=== PATIENT | male | born 1970 | race Caucasian/White ===

== ENCOUNTER → 2019-02-21 | Outpatient (REF) ==
[~2019-02-21] MED LIST: ACHD5005 PO; CYCL10TA9 PO; HYDR-1231 PO; LEVO137T24 PO; NAPR-243 PO; PRD20T PO
--- NOTE | 2019-02-21 09:34 | Diagnostic Imaging Report ---
INDICATION: One day post fall at work, pain. TECHNIQUE: 3 views of the left knee CORRELATION STUDY: None FINDINGS: The joint spaces are maintained. The articular surfaces are smooth and preserved. There is no acute bony abnormality. Small suprapatellar joint effusion. IMPRESSION: 1. Negative for acute bony abnormality of the knee. Dictated by: Dictated on workstation # [id number]
== END | disposition home or self-care (01) ==
LOC: OCC 09:09 → MERGE 09:09
PROVIDERS: ATTEND Nurse Practitioner Family
CPT/HCPCS: 73562

== ENCOUNTER 2021-04-23 13:33 | Emergency (ER) | payer BC ==
[~2021-04-23] VITALS: Ht 182.8 cm; Wt 72.5 kg
--- OUTSIDE RECORDS SUMMARY | 2021-04-23 13:39 | XMS REPORT | Clinical Summary ---
Author Author [facility] Organization [facility] Address Unknown Phone Unavailable Care Team Providers Care Sales Enablement Analyst Name Role Phone Unverified, Unverified Md PCP Unavailable Odette Ordonez MD Unavailable Source Comments Some departments are not documenting in the electronic medical record. If you d o not see the information that you expected, contact Release of Information in [facility] Health Information Management department at [phone] for further assistan ce in locating additional records.[facility] Allergies Not on File Medications Not on file Active Problems Problem Noted Date Pain in limb 11/02/2007 Social History Date Tobacco Use Types Packs/Day Years Used Never Assessed Sex Assigned at Date Recorded Not on file Last Filed Vital Signs Not on file Plan of Treatment Health Maintenance Due Date Last Done Comments HIV SCREENING 1983 DTAP/TDAP VACCINES (1 - 1986 Tdap) HEPATITIS C SCREENING 1986 PHYSICAL (COMPREHENSIVE) 1986 EXAM COLORECTAL CANCER 2018 SCREENING SHINGLES RECOMBINANT 2018 VACCINE (1 of 2) INFLUENZA VACCINE 02/14/2021 Results Not on filefrom Last 3 Months
--- NOTE | 2021-04-23 14:09 | ED Cardiac General ---
History of Present Illness General Chief Complaint: Cardiac/General Problems Stated Complaint: ABNORMAL EKG Source: patient Exam Limitations: no limitations History of Present Illness Date Seen by Provider: Apr 23, 2021 Time Seen by Provider: 14:07 Initial Comments To ER with ongoing shortness of breath since he had Covid last year. He is having some new development of sharp left-sided chest pain that lasts about 2 to 4 seconds at a time and occurs about once per hour for the past few weeks. This seems to be more noticeable when he is short of breath such as walking up sta ir[place]. He is also had some swelling in his lower extremities. Has been off of his thyroid and hypertension medications for over 6 months. Timing/Duration: 1 week Severity: moderate Activities at Onset: none Prior CP/Workup: no prior chest pain NTG SL SLURRY PLANT OPERATOR: No ASA po SLURRY PLANT OPERATOR: No Associated Systoms: Denies Symptoms Allergies and Home Medications Allergies Coded Allergies: meperidine HCl (Verified Allergy, Mild, 10/23/11) morphine (Verified Allergy, Mild, 10/23/11) tramadol (Verified Allergy, Mild, 10/23/11) Patient Home Medication List Home Medication List Reviewed: Yes Hydrochlorothiazide (Hydrochlorothiazide) 25 Mg Tablet, 25 MG PO DAILY Prescribed by: JONA MADERA on 04/23/21 1544 Hydrocodone Bit/Acetaminophen (Hydrocodone-Apap 5-325 Tablet) 1 Tab Tablet, 1-2 TAB PO Q6H PRN for PAIN Prescribed by: JONA MADERA on 10/01/13 1616 Levothyroxine Sodium (Synthroid) 137 Mcg Tablet, 1 EACH PO DAILY, (Reported) Entered as Reported by: MARLON CARRERA on 10/23/11 1047 Potassium Chloride (Potassium Chloride) 20 Meq Packet, 20 MEQ PO DAILY Prescribed by: JONA MADERA on 04/23/21 1606 Prednisone (Prednisone) 20 Mg Tab, 40 MG PO DAILY Prescribed by: JONA MADERA on 10/01/13 1616 Prednisone (Prednisone) 20 Mg Tab, 40 MG PO DAILY Prescribed by: JONA MADERA on 04/23/21 1606 Review of Systems Review of Systems Constitutional: see HPI EENTM: No Symptoms Reported Respiratory: No Symptoms Reported Cardiovascular: No Symptoms Reported Gastrointestinal: No Symptoms Reported Genitourinary: No Symptoms Reported Musculoskeletal: no symptoms reported Skin: no symptoms reported Psychiatric/Neurological: No Symptoms Reported Endocrine: No Symptoms Reported Hematologic/Lymphatic: No Symptoms Reported Past Qpojxmg-Ozlsvj-Svcwhs Hx Past Medical History Chronic Back Pain Hypothyroidsim Physical Exam Vital Signs Vital Signs - First Documented 04/23/21 13:46 Temp 36.9 Pulse 93 Resp 21 B/P (MAP) 169/100 (123) Pulse Ox 94 O2 Delivery Room Air Capillary Refill : Height, Weight, BMI Height: 6'1" Weight: 195lbs. oz. 88.106609ba; BMI Method:Stated General Appearance: No Apparent Distress, WD/WN Neck: Full Range of Motion, Normal Inspection Respiratory: Lungs Clear, Normal Breath Sounds, No Accessory Muscle Use, No Respiratory Distress Cardiovascular: Regular Rate, Rhythm, Normal Peripheral Pulses Gastrointestinal: Non Tender, Soft Extremity: Normal Capillary Refill, Normal Inspection Neurologic/Psychiatric: Alert, Oriented x3 Skin: Normal Color, Warm/Dry Progress/Results/Core Measures Results/Orders Lab Results Laboratory Tests Test 04/23/21 13:55 04/23/21 14:34 Range/Units White Blood Count 8.7 4.3-11.0 10^3/uL Red Blood Count 4.26 L 4.30-5.52 10^6/uL Hemoglobin 15.6 13.3-17.7 g/dL Hematocrit 44 40-54 % Mean Corpuscular Volume 104 H 80-99 fL Mean Corpuscular Hemoglobin 37 H 25-34 pg Mean Corpuscular Hemoglobin Concent 35 32-36 g/dL Red Cell Distribution Width 13.2 10.0-14.5 % Platelet Count 155 130-400 10^3/uL Mean Platelet Volume 10.3 9.0-12.2 fL Immature Granulocyte % (Auto) 1 % Neutrophils (%) (Auto) 63 42-75 % Lymphocytes (%) (Auto) 23 12-44 % Monocytes (%) (Auto) 9 0-12 % Eosinophils (%) (Auto) 3 0-10 % Basophils (%) (Auto) 1 0-10 % Neutrophils # (Auto) 5.5 1.8-7.8 10^3/uL Lymphocytes # (Auto) 2.0 1.0-4.0 10^3/uL Monocytes # (Auto) 0.8 0.0-1.0 10^3/uL Eosinophils # (Auto) 0.3 0.0-0.3 10^3/uL Basophils # (Auto) 0.1 0.0-0.1 10^3/uL Immature Granulocyte # (Auto) 0.0 0.0-0.1 10^3/uL D-Dimer 0.99 H 0.00-0.49 UG/ML Sodium Level 138 135-145 MMOL/L Potassium Level 3.1 L 3.6-5.0 MMOL/L Chloride Level 100 98-107 MMOL/L Carbon Dioxide Level 22 21-32 MMOL/L Anion Gap 16 H 5-14 MMOL/L Blood Urea Nitrogen 9 7-18 MG/DL Creatinine 0.82 0.60-1.30 MG/DL Estimat Glomerular Filtration Rate 99 BUN/Creatinine Ratio 11 Glucose Level 132 H 70-105 MG/DL Calcium Level 9.6 8.5-10.1 MG/DL Corrected Calcium 9.4 8.5-10.1 MG/DL Total Bilirubin 1.9 H 0.1-1.0 MG/DL Aspartate Amino Transf (AST/SGOT) 228 H 5-34 U/L Alanine Aminotransferase (ALT/SGPT) 119 H 0-55 U/L Alkaline Phosphatase 147 H 40-136 U/L Troponin I < 0.028 <0.028 NG/ML C-Reactive Protein High Sensitivity 1.39 H 0.00-0.50 MG/DL B-Type Natriuretic Peptide 41.7 <100.0 PG/ML Total Protein 8.4 H 6.4-8.2 GM/DL Albumin 4.2 3.2-4.5 GM/DL Urine Color YELLOW Urine Clarity CLEAR Urine pH 6.0 5-9 Urine Specific [place] 1.025 H 1.016-1.022 Urine Protein NEGATIVE NEGATIVE Urine Glucose (UA) NEGATIVE NEGATIVE Urine Ketones NEGATIVE NEGATIVE Urine Nitrite NEGATIVE NEGATIVE Urine Bilirubin NEGATIVE NEGATIVE Urine Urobilinogen 1.0 < = 1.0 MG/DL Urine Leukocyte Esterase TRACE H NEGATIVE Urine RBC (Auto) NEGATIVE NEGATIVE Urine RBC NONE /HPF Urine WBC 2-5 /HPF Urine Crystals PRESENT H /LPF Urine Amorphous Sediment RARE ANURADHA URATES H /LPF Urine Bacteria NEGATIVE /HPF Urine Casts NONE /LPF Urine Mucus NEGATIVE /LPF Urine Culture Indicated NO My Orders Orders - JONA MADERA ORDERLIES TEACHER Cbc With Automated Diff (04/23/21 14:01) Hs C Reactive Protein (04/23/21 14:01) Fibrin Degradation Products (04/23/21 14:01) Comprehensive Metabolic Panel (04/23/21 14:01) Ua Culture If Indicated (04/23/21 14:01) Ed Iv/Invasive Line Start (04/23/21 14:01) Chest 1 View, Ap/Pa Only (04/23/21 14:01) Ekg Tracing (04/23/21 14:01) Us Gallbladder [id number] (04/23/21 14:40) BNP (04/23/21 14:52) Troponin I (04/23/21 14:52) Iohexol Injection (Omnipaque 350 Mg/Ml 1 (04/23/21 15:15) Received Contrast (Hold Metformin- Contr (04/23/21 15:15) Ns (Ivpb) (Sodium Chloride 0.9% Ivpb Bag (04/23/21 15:15) Hydrochlorothiazide Cap/Tablet (Hctz Cap (04/23/21 15:45) Ct Angio Chest W (04/23/21 15:44) Medications Given in ED Current Medications Medications Dose Ordered Sig/Sam Route Start Time Stop Time Status Last Admin Dose Admin Iohexol 100 ml ONCE ONCE IV 04/23/21 15:15 04/23/21 15:16 DC 04/23/21 16:12 66 ML Sodium Chloride 100 ml ONCE ONCE IV 04/23/21 15:15 04/23/21 15:16 DC 04/23/21 16:12 80 ML Vital Signs/I&O 04/23/21 13:46 Temp 36.9 Pulse 93 Resp 21 B/P (MAP) 169/100 (123) Pulse Ox 94 O2 Delivery Room Air Departure Impression Primary Impression: Hypertensive heart disease Additional Impressions: Fatty liver disease, nonalcoholic Pleurisy Disposition: 01 HOME, SELF-CARE Condition: Stable Departure-Patient Inst. Decision time for Depature: 15:41 Referrals: NO,LOCAL PHYSICIAN (PCP/Family) Primary Care Physician Patient Instructions: High Blood Pressure (DC) Add. Discharge Instructions: 1. Medication as directed 2. Return to ER for any concerns 3. Follow-up with your doctor next week. All discharge instructions reviewed with patient and/or family. Voiced understanding. Scripts Potassium Chloride (Potassium Chloride) 20 Meq Packet 20 MEQ PO DAILY, #10 PACKET Prov: JONA MADERA APRN 04/23/21 Prednisone (Prednisone) 20 Mg Tab 40 MG PO DAILY, #6 TAB Prov: JONA MADERA APRN 04/23/21 Hydrochlorothiazide (Hydrochlorothiazide) 25 Mg Tablet 25 MG PO DAILY, #20 TAB Prov: JONA MADERA APRN 04/23/21 Work/School Note: Work Release Form Date Seen in the Emergency Department: Apr 23, 2021 Return to Work: Apr 24, 2021 Restrictions: may return to work on 04/24/21 JONA MADERA APRN Apr 23, 2021 14:09
[2021-04-23 14:17] LABS: BASOPHILS # (AUTO) 0.1 10^3/uL (0.0-0.1); BASOPHILS % (AUTO) 1 % (0-10); EOSINOPHILS # (AUTO) 0.3 10^3/uL (0.0-0.3); EOSINOPHILS % (AUTO) 3 % (0-10); HEMATOCRIT 44 % (40-54); HEMOGLOBIN 15.6 g/dL (13.3-17.7); LYMPHOCYTES % (AUTO) 23 % (12-44); MEAN CORPUSCULAR HEMOGLOBIN 37 pg (25-34); MEAN CORPUSCULAR HGB CONC 35 g/dL (32-36); MEAN CORPUSCULAR VOLUME 104 fL (80-99); MEAN PLATELET VOLUME 10.3 fL (9.0-12.2); MONOCYTES # (AUTO) 0.8 10^3/uL (0.0-1.0); MONOCYTES % (AUTO) 9 % (0-12); NEUTROPHILS # (AUTO) 5.5 10^3/uL (1.8-7.8); NEUTROPHILS % (AUTO) 63 % (42-75); PLATELET COUNT 155 10^3/uL (130-400); WHITE BLOOD COUNT 8.7 10^3/uL (4.3-11.0)
[2021-04-23 14:19] LABS: ALBUMIN 4.2 GM/DL (3.2-4.5); POTASSIUM 3.1 MMOL/L (3.6-5.0)
[2021-04-23 14:20] LABS: CALCIUM 9.6 MG/DL (8.5-10.1)
[2021-04-23 14:21] LABS: TOTAL PROTEIN 8.4 GM/DL (6.4-8.2)
[2021-04-23 14:23] LABS: BILIRUBIN,TOTAL 1.9 MG/DL (0.1-1.0)
--- NOTE | 2021-04-23 14:24 | Diagnostic Imaging Report ---
INDICATION: Chest pain. EXAMINATION: Chest from 04/23/2021. FINDINGS: Single view of the chest. The cardiomediastinal silhouette is unremarkable. The pulmonary vasculature is within normal limits. The lungs and pleural spaces are clear. IMPRESSION: No evidence of an acute cardiopulmonary process. Dictated by: Dictated on workstation # [id number]
[2021-04-23 14:25] LABS: CREATININE SERUM 0.82 MG/DL (0.60-1.30)
[2021-04-23 14:44] LABS: BILIRUBIN,URINE NEGATIVE (NEGATIVE); CLARITY,URINE CLEAR; COLOR,URINE YELLOW; GLUCOSE, URINE (UA) NEGATIVE (NEGATIVE); KETONES,URINE NEGATIVE (NEGATIVE); LEUKOCYTE ESTERASE ,URINE TRACE (NEGATIVE); NITRITE,URINE NEGATIVE (NEGATIVE); PROTEIN,URINE NEGATIVE (NEGATIVE)
[2021-04-23 14:52] LABS: AMORPHOUS SEDIMENT,UR RARE AMOR URATES /LPF; BACTERIA,URINE NEGATIVE /HPF
[2021-04-23] MEDS ORDERED: NS 100 ML (IVPB) BAG IV ONE (15:15)
[2021-04-23] MEDS ORDERED: IOHEXOL 350 MG/ML 100 ML (OMNIPAQUE 350) VIAL IV ONE (15:15)
[2021-04-23] MEDS ORDERED: HOLD METFORMIN - RECEIVED CONTRAST 20 ML VIAL IV SCH (15:15)
[2021-04-23] MEDS ORDERED: HYDR25TA4 PO (15:44)
--- NOTE | 2021-04-23 15:59 | Diagnostic Imaging Report ---
PROCEDURE: US Gallbladder. TECHNIQUE: Multiple real-time grayscale images were obtained over the right upper quadrant in various projections. INDICATION: Elevated liver function tests. COMPARISON: None. FINDINGS: The pancreas is mostly obscured by bowel gas. Visible portion is unremarkable. Imaged portions of the aorta and IVC are unremarkable. The liver is echogenic with no focal lesion seen. The liver is large in size measuring 26.6 cm. No biliary dilatation is seen. The main portal vein is hepatopetal. Sonographic De Los Santos's sign is negative. The common bile duct measures 0.5 cm, which is normal. The gallbladder demonstrates no wall thickening and no stones. There is no pericholecystic fluid. The kidney is 11.9 cm in length with no hydronephrosis seen. There is no free fluid. IMPRESSION: 1. Hepatomegaly and hepatic steatosis. 2. No gallbladder abnormality or biliary dilatation seen. Findings reported to MIGUEL Stein, by the standpipe tender following the exam. Dictated by: Dictated on workstation # [id number]
[2021-04-23] MEDS ORDERED: POTA20PA28 PO (16:06)
[2021-04-23] MEDS ORDERED: PRD20T PO (16:06)
--- NOTE | 2021-04-23 16:30 | Diagnostic Imaging Report ---
PROCEDURE: CT angiography of the chest with contrast. TECHNIQUE: Multiple contiguous axial images were obtained through the chest after uneventful bolus administration of intravenous contrast. 3D reconstructed CTA MIP acquisitions were also performed. Auto Exposure Controls were utilized during the CT exam to meet ALARA standards for radiation dose reduction. INDICATION: Shortness of air. Elevated D-dimer. COMPARISON: Chest radiograph 04/23/2021. FINDINGS: No pulmonary artery filling defects. Normal caliber thoracic aorta. Normal heart size. No pericardial effusion. No lymphadenopathy. No pleural effusion or pneumothorax. Lungs are clear. No endobronchial lesions. Chronic overriding fracture of the sternal manubrium. There is also anterior wedging of the T4 vertebral body which is likely chronic and results in approximately 40% height loss anteriorly. Superior endplate height loss of T8, T11, T12 and L1 is also likely chronic. No acute findings in the visualized upper abdomen. IMPRESSION: 1. No pulmonary emboli. 2. No acute CT findings in the chest. 3. Chronic overriding fracture of the sternal manubrium. 4. Multiple compression deformities in the thoracic spine are likely chronic. If there is concern for an acute spinal injury, recommend MRI for further evaluation Dictated by: Dictated on workstation # [id number]
[2021-04-23] MEDS ORDERED: cloNIDine 0.1 MG (CATAPRES) TAB PO ONE (16:45)
[2021-04-23 16:50] VITALS: BP 175/112
== END 2021-04-23 16:50 | disposition home or self-care (01) ==
LOC: EDUNIT# 13:33 → ER 13:36
DX: I11.9 Hypertensive heart disease without heart failure (principal); K76.0 Fatty (change of) liver, not elsewhere classified; E03.9 Hypothyroidism, unspecified; Z88.5 Allergy status to narcotic agent; Z79.890 Hormone replacement therapy; Z79.899 Other long term (current) drug therapy
CPT/HCPCS: 36415; 71045; 71275; 76705; 80053; 81000; 83880; 84484; 85025; 85379; 86141; 93005

== ENCOUNTER 2021-12-11 21:54 | Inpatient (IN) | payer BC ==
[~2021-12-11] VITALS: Ht 182.9 cm; Wt 114.1 kg
[~2021-12-11 21:54] MED LIST changes: +HYDR25TA4 PO; +POTA20PA28 PO
[2021-12-12] MEDS ORDERED: cefTRIAXone 1 GM PRE-MIX 50 ML IV ONE (00:15)
[2021-12-12] MEDS ORDERED: LACTATED RINGERS 1,000 ML IV ONE ×2 (00:15)
--- NOTE | 2021-12-12 00:19 | ED GU-Male ---
General Stated Complaint: KIDNEY STONE Source: patient Exam Limitations: no limitations History of Present Illness Date Seen by Provider: December 12, 2021 Time Seen by Provider: 00:00 Initial Comments Patient presents ER by private conveyance from home with chief complaint of severe burning and pain at the end of his penis for the past 4 days and 2 days of fever 100-101 Fahrenheit. He has been using Tylenol for the fever but nothing helps with the pain. He has had kidney stones before and thinks that is what is happening today. He did not have any flank pain at any time. He is having some nausea with one episode of emesis. No diarrhea constipation or shortness of air. He denies a history of prostatism and does not follow-up with a urologist. Allergies and Home Medications Allergies Coded Allergies: meperidine HCl (Verified Allergy, Mild, 10/23/11) morphine (Verified Allergy, Mild, 10/23/11) tramadol (Verified Allergy, Mild, 10/23/11) Patient Home Medication List Home Medication List Reviewed: Yes Ciprofloxacin HCl (Ciprofloxacin HCl) 500 Mg Tablet, 500 MG PO BID Prescribed by: KRISTINA GODINEZ on 12/12/21 1004 Hydrochlorothiazide (Hydrochlorothiazide) 25 Mg Tablet, 25 MG PO DAILY Prescribed by: JONA MADERA on 04/23/21 1544 Hydrocodone Bit/Acetaminophen (Hydrocodone-Apap 5-325 Tablet) 1 Tab Tablet, 1-2 TAB PO Q6H PRN for PAIN Prescribed by: JONA MADERA on 10/01/13 1616 Hydrocodone/Acetaminophen (Hydrocodone-Acetamin 7.5-325) 7.5 Mg-325 Mg Tablet, 1 EACH PO Q4H PRN for PAIN-BREAKTHROUGH Prescribed by: KRISTINA GODINEZ on 12/12/21 1004 Levothyroxine Sodium (Synthroid) 137 Mcg Tablet, 1 EACH PO DAILY, (Reported) Entered as Reported by: MARLON CARRERA on 10/23/11 1047 Metronidazole (Metronidazole) 500 Mg Tablet, 500 MG PO BID Prescribed by: KRISTINA GODINEZ on 12/12/21 1004 Potassium Chloride (Potassium Chloride) 20 Meq Packet, 20 MEQ PO DAILY Prescribed by: JONA MADERA on 04/23/21 1606 Prednisone (Prednisone) 20 Mg Tab, 40 MG PO DAILY Prescribed by: JONA MADERA on 10/01/13 1616 Prednisone (Prednisone) 20 Mg Tab, 40 MG PO DAILY Prescribed by: JONA MADERA on 04/23/21 1606 Review of Systems Review of Systems Constitutional: No chills, No diaphoresis EENTM: No ear discharge, No hearing loss, No ear pain Respiratory: No cough, No short of breath Cardiovascular: No edema Gastrointestinal: No abdominal pain, No constipation, No diarrhea; nausea, vomiting Genitourinary: burning; denies discharge; dysuria; denies flank pain, denies hematuria Musculoskeletal: No back pain, No joint pain All Other Systemes Reviewed Negative Unless Noted: Yes Past Qrjdmai-Bzryje-Zgqskq Hx Patient Social History Tobacco Use?: No Use of E-Cig and/or Vaping dev: No Substance use?: No Past Medical History Chronic Back Pain Hypothyroidsim Physical Exam Vital Signs Vital Signs - First Documented 12/12/21 00:00 Temp 38.4 Pulse 105 Resp 18 B/P (MAP) 160/92 (114) Pulse Ox 95 O2 Delivery Room Air Capillary Refill : Height, Weight, BMI Height: 6'1" Weight: 195lbs. oz. 88.202493gp; 21.00 BMI Method:Stated General Appearance: WD/WN, mild distress HEENT: PERRL/EOMI, pharynx normal Neck: full range of motion, supple, normal inspection Cardiovascular: normal peripheral pulses, regular rate, rhythm Respiratory: lungs clear, normal breath sounds, no respiratory distress, no accessory muscle use Gastrointestinal: non tender, soft Back: normal inspection, no CVA tenderness Extremities: normal range of motion, non-tender, normal capillary refill Neurologic/Psychiatric: alert, normal mood/affect, oriented x 3 Skin: normal color, warm/dry Focused Exam Lactate Level 12/12/21 00:15: Lactic Acid Level 1.49 Lactic Acid Level Laboratory Tests Test 12/12/21 00:15 Lactic Acid Level 1.49 MMOL/L (0.50-2.00) Progress/Results/Core Measures Suspected Sepsis SIRS Temperature: Pulse: Respiratory Rate: Laboratory Tests 12/12/21 00:10: White Blood Count 9.3 Blood Pressure / Mean: 12/12/21 00:15: Lactic Acid Level 1.49 Laboratory Tests 12/12/21 00:10: Creatinine 0.79, INR Comment 1.2, Platelet Count 133, Total Bilirubin 5.2H Results/Orders Lab Results Laboratory Tests Test 12/12/21 00:10 12/12/21 00:15 12/12/21 00:45 Range/Units White Blood Count 9.3 4.3-11.0 10^3/uL Red Blood Count 4.01 L 4.30-5.52 10^6/uL Hemoglobin 14.1 13.3-17.7 g/dL Hematocrit 40 40-54 % Mean Corpuscular Volume 100 H 80-99 fL Mean Corpuscular Hemoglobin 35 H 25-34 pg Mean Corpuscular Hemoglobin Concent 35 32-36 g/dL Red Cell Distribution Width 15.4 H 10.0-14.5 % Platelet Count 133 130-400 10^3/uL Mean Platelet Volume 9.9 9.0-12.2 fL Immature Granulocyte % (Auto) 0 % Neutrophils (%) (Auto) 63 42-75 % Lymphocytes (%) (Auto) 23 12-44 % Monocytes (%) (Auto) 12 0-12 % Eosinophils (%) (Auto) 1 0-10 % Basophils (%) (Auto) 1 0-10 % Neutrophils # (Auto) 5.9 1.8-7.8 10^3/uL Lymphocytes # (Auto) 2.1 1.0-4.0 10^3/uL Monocytes # (Auto) 1.1 H 0.0-1.0 10^3/uL Eosinophils # (Auto) 0.1 0.0-0.3 10^3/uL Basophils # (Auto) 0.1 0.0-0.1 10^3/uL Immature Granulocyte # (Auto) 0.0 0.0-0.1 10^3/uL Prothrombin Time 15.7 H 12.2-14.7 SEC INR Comment 1.2 0.8-1.4 Activated Partial Thromboplast Time 49 H 24-35 SEC Sodium Level 136 135-145 MMOL/L Potassium Level 2.7 L 3.6-5.0 MMOL/L Chloride Level 91 L 98-107 MMOL/L Carbon Dioxide Level 27 21-32 MMOL/L Anion Gap 18 H 5-14 MMOL/L Blood Urea Nitrogen 11 7-18 MG/DL Creatinine 0.79 0.60-1.30 MG/DL Estimat Glomerular Filtration Rate 106 BUN/Creatinine Ratio 14 Glucose Level 143 H 70-105 MG/DL Calcium Level 9.5 8.5-10.1 MG/DL Corrected Calcium 9.7 8.5-10.1 MG/DL Total Bilirubin 5.2 H 0.1-1.0 MG/DL Aspartate Amino Transf (AST/SGOT) 259 H 5-34 U/L Alanine Aminotransferase (ALT/SGPT) 75 H 0-55 U/L Alkaline Phosphatase 191 H 40-136 U/L Total Protein 8.9 H 6.4-8.2 GM/DL Albumin 3.7 3.2-4.5 GM/DL Serum Alcohol < 10 <10 MG/DL Lactic Acid Level 1.49 0.50-2.00 MMOL/L Urine Color ORANGE Urine Clarity CLEAR Urine pH 7.0 5-9 Urine Specific [place] 1.015 L 1.016-1.022 Urine Protein NEGATIVE NEGATIVE Urine Glucose (UA) TRACE H NEGATIVE Urine Ketones NEGATIVE NEGATIVE Urine Nitrite NEGATIVE NEGATIVE Urine Bilirubin 1+ H NEGATIVE Urine Urobilinogen >=8.0 < = 1.0 MG/DL Urine Leukocyte Esterase TRACE H NEGATIVE Urine RBC (Auto) NEGATIVE NEGATIVE Urine RBC 2-5 H /HPF Urine WBC 2-5 /HPF Urine Squamous Epithelial Cells RARE /HPF Urine Crystals NONE /LPF Urine Bacteria TRACE /HPF Urine Casts NONE /LPF Urine Mucus LARGE H /LPF Urine Culture Indicated CULTURE PENDING My Orders Orders - ALEXX BECKETT Cbc With Automated Diff (12/12/21 00:13) Comprehensive Metabolic Panel (12/12/21 00:13) Blood Culture (12/12/21 00:13) Urine Culture (12/12/21:13) Protime With Inr (12/12/21:13) Partial Thromboplastin Time (12/12/21 00:13) Ed Iv/Invasive Line Start (12/12/21 00:13) Ed Iv/Invasive Line Start (12/12/21 00:13) Remove Rings In Anticipation O (12/12/21:13) Lactic Acid Analyzer (12/12/21:13) Lactated Ringers (Lr 1000 Ml Iv Solution (12/12/21 00:15) Ceftriaxone 1 Gm Pre-Mix (Rocephin 1 Gm (12/12/21 00:15) Ed Iv/Invasive Line Start (12/12/21 00:13) Lactated Ringers (Lr 1000 Ml Iv Solution (12/12/21 00:15) Ct Abd/Pelvis Wo(Kidney Stone) (12/12/21 00:13) Ondansetron Injection (Zofran Injectio (12/12/21 00:30) Ketorolac Injection (Toradol Injection) (12/12/21 00:30) Alcohol (12/12/21 00:48) Potassium Cl 10meq/50ml Ivpb (Kcl 10 Meq (12/12/21 01:00) Potassium Chloride (Tablet) (K Dur Table (12/12/21 01:00) Medications Given in ED Vital Signs/I&O 12/12/21 12/12/21 12/12/21 00:00 00:34 02:00 Temp 38.4 38.4 Pulse 105 Resp 18 B/P (MAP) 160/92 (114) Pulse Ox 95 O2 Delivery Room Air Room Air Capillary Refill : Progress Note : Time: 00:21 Progress Note Kidney stone versus UTI. He is tachycardic and febrile so ordering a septic work-up with a couple liters of fluids and Rocephin IV. Toradol for pain Zofran for nausea Diagnostic Imaging Diagonstic Imaging: CT Plain Films/CT/US/NM/MRI: abdomen, pelvis Comments Suspect colitis with particular predominance thickening and inflammation of the rectum. Probable cirrhosis with splenomegaly. [facility], [place] NAME: CHEYANNE MADSEN [facility] REC#: [id number] PT STATUS: DIS IN : 1970 PHYSICIAN: ALEXX BECKETT MD ADMIT DATE: 12/12/21 Signed Date of Exam:12/12/21 CT ABD/PELVIS WO(KIDNEY STONE) PROCEDURE: CT urinary tract, rule out kidney stone. TECHNIQUE: Multiple contiguous axial images were obtained through the abdomen and pelvis without the use of intravenous contrast. Auto Exposure Controls were utilized during the CT exam to meet ALARA standards for radiation dose reduction. INDICATION: Abdominal pain, flank pain COMPARISON: None available. FINDINGS: Mild bibasilar scarring and/or atelectasis. The liver is diffusely enlarged. It measures near 25 cm in craniocaudal dimension. The liver demonstrates a slightly nodular contour. A few small ill-defined hypodensities are seen within the liver, including a 1.2 cm hypodensity within the anterior left hepatic lobe. The spleen is enlarged measuring 15.2 cm. The adrenal glands are unremarkable. The unenhanced pancreas is unremarkable. Sludge and/or stones are noted within the gallbladder without significant inflammatory stranding adjacent to the gallbladder. 6 mm calculus within the inferior pole of the right kidney. The right kidney and right ureter are otherwise unremarkable. The left kidney and left ureter are unremarkable. Mild vascular calcifications without aneurysmal dilatation of the abdominal aorta. Small fat-containing umbilical hernia. The urinary bladder is unremarkable. Scattered regions of mural thickening are identified within the colon, particularly the rectum and distal sigmoid colon. No evidence of acute appendicitis. No bowel obstruction or pneumatosis. Small amount of free fluid and fat stranding is noted within the peritoneum, particularly within the paracolic gutters. No free air. Multiple superior endplate concavities are identified within the thoracolumbar spine, appearing chronic in nature. Advanced degenerative changes at L5/S1. IMPRESSION: Suspected colitis, particularly involving the distal colon and rectum. Hepatosplenomegaly with probable cirrhotic morphology of the liver. Ill-defined hypodensity is suggested within the liver which is not evaluated. Further evaluation with right upper quadrant ultrasound versus CT or MRI of the abdomen with and without contrast using hepatic mass protocol would be recommended non-emergently. Cholelithiasis. Nonobstructing right renal calculus. Small amount of ascites and inflammatory stranding within the abdomen and pelvis, particularly within the paracolic gutters. Findings regarding the small hypodensities within the liver were not included in the preliminary report, otherwise I agree with the preliminary report. These additional findings were communicated to the ER via the additional findings tracking sheet. Dictated by: Dictated on workstation # [id number] Dict: 12/12/21 0648 Trans: 12/12/216 [facility] [id number] Interpreted by: MARTHA RIVERA MD Electronically signed by: MARTHA RIVERA MD 12/12/216 Reviewed: Reviewed Night Nick Study, Reviewed by Me Departure Communication (Admissions) Time/Spoke to Admitting Phy: 02:42 Discussed the imaging findings of jaundice with Dr. ZUNIGA, general surgery. He is okay to admit the patient to himself with some pain and nausea medications, liquid diet and repeat labs daily. If it passes on its own good if it does not however then he would plan an ERCP. Impression Primary Impression: Microscopic hematuria Additional Impressions: Cholelithiasis with choledocholithiasis Acquired hyperbilirubinemia Disposition: ADMITTED INPATIENT Condition: Stable Admissions Decision to Admit Reason: Admit from ER (General) Decision to Admit/Date: December 12, 2021 Time/Decision to Admit Time: 02:40 Departure-Patient Inst. Referrals: NO,LOCAL PHYSICIAN (PCP/Family) Primary Care Physician Scripts Metronidazole (Metronidazole) 500 Mg Tablet 500 MG PO BID, #20 TAB Prov: KRISTINA GODINEZ RESISTANCE BRAZER 12/12/21 Ciprofloxacin HCl (Ciprofloxacin HCl) 500 Mg Tablet 500 MG PO BID, #20 TAB Prov: KRISTINA GODINEZ APRN 12/12/21 Hydrocodone/Acetaminophen (Hydrocodone-Acetamin 7.5-325) 7.5 Mg-325 Mg Tablet 1 EACH PO Q4H PRN for PAIN-BREAKTHROUGH, #35 TAB Prov: KRISTINA GODINEZ APRN 12/12/21 ALEXX BECKETT December 12, 2021 00:18
[2021-12-12 00:20] LABS: BASOPHILS # (AUTO) 0.1 10^3/uL (0.0-0.1); BASOPHILS % (AUTO) 1 % (0-10); EOSINOPHILS # (AUTO) 0.1 10^3/uL (0.0-0.3); EOSINOPHILS % (AUTO) 1 % (0-10); HEMATOCRIT 40 % (40-54); HEMOGLOBIN 14.1 g/dL (13.3-17.7); LYMPHOCYTES # (AUTO) 2.1 10^3/uL (1.0-4.0); LYMPHOCYTES % (AUTO) 23 % (12-44); MEAN CORPUSCULAR HEMOGLOBIN 35 pg (25-34); MEAN CORPUSCULAR HGB CONC 35 g/dL (32-36); MEAN CORPUSCULAR VOLUME 100 fL (80-99); MEAN PLATELET VOLUME 9.9 fL (9.0-12.2); MONOCYTES # (AUTO) 1.1 10^3/uL (0.0-1.0); MONOCYTES % (AUTO) 12 % (0-12); NEUTROPHILS # (AUTO) 5.9 10^3/uL (1.8-7.8); NEUTROPHILS % (AUTO) 63 % (42-75); PLATELET COUNT 133 10^3/uL (130-400); WHITE BLOOD COUNT 9.3 10^3/uL (4.3-11.0)
[2021-12-12 00:26] LABS: ALBUMIN 3.7 GM/DL (3.2-4.5); POTASSIUM 2.7 MMOL/L (3.6-5.0)
[2021-12-12 00:28] LABS: CALCIUM 9.5 MG/DL (8.5-10.1)
[2021-12-12 00:29] LABS: TOTAL PROTEIN 8.9 GM/DL (6.4-8.2)
[2021-12-12] MEDS ORDERED: ONDANSETRON 4 MG/2 ML (SDV) Z0FRAN IVP ONE (00:30)
[2021-12-12] MEDS ORDERED: KETOROLAC 30 MG/ML VIAL IVP ONE (00:30)
[2021-12-12 00:31] LABS: BILIRUBIN,TOTAL 5.2 MG/DL (0.1-1.0)
[2021-12-12 00:32] LABS: CREATININE SERUM 0.79 MG/DL (0.60-1.30)
[2021-12-12 00:41] LABS: INR 1.2 (0.8-1.4); PROTHROMBIN TIME PATIENT 15.7 SEC (12.2-14.7)
[2021-12-12 00:56] LABS: CLARITY,URINE CLEAR; COLOR,URINE ORANGE; GLUCOSE, URINE (UA) TRACE (NEGATIVE); KETONES,URINE NEGATIVE (NEGATIVE); LEUKOCYTE ESTERASE ,URINE TRACE (NEGATIVE); NITRITE,URINE NEGATIVE (NEGATIVE); PROTEIN,URINE NEGATIVE (NEGATIVE)
[2021-12-12] MEDS ORDERED: POTASSIUM CL 10MEQ/50ML IVPB 50 ML IV ONE (01:00)
[2021-12-12] MEDS ORDERED: KCL 20 MEQ TAB (K-DUR) PO ONE (01:00)
[2021-12-12 01:03] LABS: BILIRUBIN,URINE 1+ (NEGATIVE)
[2021-12-12 01:04] LABS: BACTERIA,URINE TRACE /HPF; SQUAMOUS EPITHELIAL CELL,UR RARE /HPF
[2021-12-12] MEDS ORDERED: CATHETER FLUSH 10 ML SYR IVP PRN (03:45)
[2021-12-12] MEDS ORDERED: ONDANSETRON 4 MG/2 ML (SDV) Z0FRAN IV PRN (03:45)
[2021-12-12] MEDS ORDERED: HYDROcodone/APAP 5 MG/325 MG (LORTAB) TAB PO PRN (03:45)
[2021-12-12] MEDS ORDERED: fentaNYL INJ 100 MCG/2 ML AMP IV PRN (03:45)
[2021-12-12 04:07] VITALS: BP 158/79
[2021-12-12] MEDS: fentaNYL INJ 100 MCG/2 ML AMP IV PRN ×2 (04:07→08:19)
[2021-12-12] MEDS ORDERED: CATHETER FLUSH 10 ML SYR IVP SCH (06:00)
[2021-12-12] MEDS ORDERED: LEVOTHYROXINE 112 MCG (LEVOTHROID) TAB PO SCH (06:30)
[2021-12-12] MEDS ORDERED: LEVOTHYROXINE 25 MCG (LEVOTHROID) TAB PO SCH (06:30)
--- NOTE | 2021-12-12 07:07 | Diagnostic Imaging Report ---
PROCEDURE: CT urinary tract, rule out kidney stone. TECHNIQUE: Multiple contiguous axial images were obtained through the abdomen and pelvis without the use of intravenous contrast. Auto Exposure Controls were utilized during the CT exam to meet ALARA standards for radiation dose reduction. INDICATION: Abdominal pain, flank pain COMPARISON: None available. FINDINGS: Mild bibasilar scarring and/or atelectasis. The liver is diffusely enlarged. It measures near 25 cm in craniocaudal dimension. The liver demonstrates a slightly nodular contour. A few small ill-defined hypodensities are seen within the liver, including a 1.2 cm hypodensity within the anterior left hepatic lobe. The spleen is enlarged measuring 15.2 cm. The adrenal glands are unremarkable. The unenhanced pancreas is unremarkable. Sludge and/or stones are noted within the gallbladder without significant inflammatory stranding adjacent to the gallbladder. 6 mm calculus within the inferior pole of the right kidney. The right kidney and right ureter are otherwise unremarkable. The left kidney and left ureter are unremarkable. Mild vascular calcifications without aneurysmal dilatation of the abdominal aorta. Small fat-containing umbilical hernia. The urinary bladder is unremarkable. Scattered regions of mural thickening are identified within the colon, particularly the rectum and distal sigmoid colon. No evidence of acute appendicitis. No bowel obstruction or pneumatosis. Small amount of free fluid and fat stranding is noted within the peritoneum, particularly within the paracolic gutters. No free air. Multiple superior endplate concavities are identified within the thoracolumbar spine, appearing chronic in nature. Advanced degenerative changes at L5/S1. IMPRESSION: Suspected colitis, particularly involving the distal colon and rectum. Hepatosplenomegaly with probable cirrhotic morphology of the liver. Ill-defined hypodensity is suggested within the liver which is not evaluated. Further evaluation with right upper quadrant ultrasound versus CT or MRI of the abdomen with and without contrast using hepatic mass protocol would be recommended non-emergently. Cholelithiasis. Nonobstructing right renal calculus. Small amount of ascites and inflammatory stranding within the abdomen and pelvis, particularly within the paracolic gutters. Findings regarding the small hypodensities within the liver were not included in the preliminary report, otherwise I agree with the preliminary report. These additional findings were communicated to the ER via the additional findings tracking sheet. Dictated by: Dictated on workstation # [id number]
[2021-12-12 08:00] VITALS: BP 165/90
[2021-12-12] MEDS ORDERED: METR-145 PO (10:04)
[2021-12-12] MEDS ORDERED: HYDR-3817 PO (10:04)
[2021-12-12] MEDS ORDERED: CIPR500T5 PO (10:04)
--- NOTE | 2021-12-12 10:05 | Discharge Inst-Surgical ---
D/C Lap Instructions-KIDO Reconcile Patient Problems Problems Reviewed?: Yes New, Converted, or Re-Newed RX: RX on Chart Please have CBC and CMP checked on Monday12/14/2021 Activity as tolerated No driving for 24 hours No [address] while on pain medications Clear liquid diet Avoid Alcohol, Caffeine, Spicy [place] and Acid foods. Drink 64 fluid oz or more of fluids per day. Symptoms to Report: Fever over 101 degree F, Nausea/Vomiting If any problems/questions: Contact your physician or go to Emergency Room KRISTINA GODINEZ APRN December 12, 2021 10:05
[2021-12-12 10:07] LABS: ALBUMIN 3.4 GM/DL (3.2-4.5); POTASSIUM 2.7 MMOL/L (3.6-5.0)
[2021-12-12 10:08] LABS: CALCIUM 9.2 MG/DL (8.5-10.1)
[2021-12-12 10:10] LABS: TOTAL PROTEIN 8.4 GM/DL (6.4-8.2)
[2021-12-12 10:11] LABS: BILIRUBIN,TOTAL 5.3 MG/DL (0.1-1.0)
[2021-12-12 10:13] LABS: CREATININE SERUM 0.77 MG/DL (0.60-1.30)
[2021-12-12 11:10] VITALS: BP 131/54
--- NOTE | 2021-12-12 11:24 | HISTORY AND PHYSICAL ---
DATE OF SERVICE: HISTORY OF PRESENT ILLNESS: The patient is a 51-year-old male, who presented to the Emergency Department earlier this morning with several day history of pain in the epigastric region as well as in the right upper abdominal quadrant. He also does report having some intermittent episodes of nausea and one episode of emesis. No hematemesis, no coffee ground emesis. He states that his bowel movements are normal. A CT scan was performed, which did show mild gallbladder wall thickening; however, multiple gallstones. He also was found to have elevated total bilirubin 5.2, likely consistent with choledocholithiasis. Patient also was found to have a symptomatic reducible umbilical hernia and sigmoid colitis detected on CT scan. patient does not report any diarrhea or red blood per rectum. He has not had a colonoscopy up to this point in his life. PAST MEDICAL HISTORY: Hypertension, hypothyroid, degenerative joint disease. PAST SURGICAL HISTORY: None known. ALLERGIES: MEPERIDINE, MORPHINE, TRAMADOL. MEDICATIONS: Hydrochlorothiazide 25 mg daily, hydrocodone p.r.n., levothyroxine 137 mcg daily, potassium 20 mEq daily, prednisone 40 mg daily. SOCIAL HISTORY: Negative smoke, negative alcohol. FAMILY HISTORY: Noncontributory. VITAL SIGNS: Temperature 37.6, blood pressure 165/90, pulse 90, respirations 20, pulse ox 93% on room air. REVIEW OF SYSTEMS: A well-nourished male currently in no acute distress. He is not experiencing any shortness of breath or difficulty breathing. No chest pain, palpitations, diaphoresis. No nausea, vomiting, no diarrhea or constipation. He did have fevers early this morning. No recent inadvertent weight loss. All other review of systems negative. PHYSICAL EXAMINATION: CHEST: Good breath sounds bilaterally. HEART: Regular, no murmurs. EXTREMITIES: No lower extremity edema, negative Homans sign. HEENT: No scleral icterus. NECK: No cervical lymphadenopathy. ABDOMEN: Soft, obese. There is pain in the right upper abdominal quadrant upon palpation. There is also a reducible umbilical hernia. SKIN: Warm, dry. LABORATORY DATA: WBC 9.3, hemoglobin 14.1, hematocrit 40, platelets 133. Urinalysis did show trace leukocyte esterase. ASSESSMENT AND PLAN: A 51-year-old male with likely cholelithiasis and choledocholithiasis. Hopefully, this is transient and we will proceed with IV hydration and bowel rest with a clear liquid diet and hopefully the stone or sludge will pass and there is normalization of his liver function enzymes and once this is established, we then proceed with a laparoscopic cholecystectomy, umbilical hernia repair and a colonoscopy. Patient also states that he has to go home for important family issues. He would like to go home and have his labs monitored as an outpatient. This seems reasonable due to the fact he is completely asymptomatic at this time. We will recommend a clear liquid diet and PO abx and home and follow up in the office this monday. Job ID: [id number] DocumentID: [id number] Dictated Date: 12/12/2021 09:36:04 Returned Goods Receiving Clerk Date: 12/12/2021 11:24:10 Dictated By: SHASTA ZUNIGA MD MTDD
== END 2021-12-12 11:10 | disposition home or self-care (01) | DRG 446 ==
LOC: EDUNIT# 21:54 → ER 21:56 → 4TH 12-12 02:50
PROVIDERS: ADMIT Surgery; ATTEND Surgery
DX: K80.70 Calculus of gallbladder and bile duct without cholecystitis without obstruction (principal); R31.29 Other microscopic hematuria; E80.6 Other disorders of bilirubin metabolism; G89.29 Other chronic pain; M54.9 Dorsalgia, unspecified; E03.9 Hypothyroidism, unspecified; K42.9 Umbilical hernia without obstruction or gangrene; K52.9 Noninfective gastroenteritis and colitis, unspecified; M19.90 Unspecified osteoarthritis, unspecified site
CPT/HCPCS: 36415; 74176; 80053; 80320; 81000; 83605; 85025; 85610; 85730; 87040; 87088

== ENCOUNTER → 2021-12-23 | Outpatient (CLI) | payer BC ==
[~2021-12-23] MED LIST changes: +CIPR500T5 PO; +HYDR-3817 PO; +METR-145 PO
--- NOTE | 2021-12-23 11:46 | Diagnostic Imaging Report ---
EXAMINATION: MRI of the abdomen without contrast. MRCP TECHNIQUE: Multiplanar, multisequence MR images of the abdomen were obtained without intravenous contrast including 3D MIP MRCP images. HISTORY: Choledocholithiasis COMPARISON: None available. FINDINGS: Liver: Liver is cirrhotic. There is a small cyst in segment 4A of the liver. No suspicious liver lesions are seen. There are a few nodular areas of sparing of steatosis at the gallbladder fossa. There is mild steatosis. No surface nodularity. Ducts: No biliary ductal dilation. Gallbladder: There are a few small stones in the gallbladder. No wall thickening or pericholecystic fluid.. Pancreas: Normal. Spleen: Normal. Adrenals: Normal. Kidneys: No suspicious lesions. No hydronephrosis. Bowel: Normal. Other: No lymphadenopathy. Visualized portions of the thorax are normal. No suspicious osseus lesions. IMPRESSION: 1. Cirrhotic liver without suspicious lesion. There is steatosis with a few scattered areas of sparing at the gallbladder fossa. 2. Small gallstones in the gallbladder. No choledocholithiasis. Dictated by: Dictated on workstation # [id number]
== END ==
LOC: RAD 08:45
PROVIDERS: ATTEND Internal Medicine Gastroenterology
DX: K74.60 Unspecified cirrhosis of liver (principal); K76.0 Fatty (change of) liver, not elsewhere classified; K80.50 Calculus of bile duct without cholangitis or cholecystitis without obstruction; R93.89 Abnormal findings on diagnostic imaging of other specified body structures
CPT/HCPCS: 74181

== ENCOUNTER → 2022-01-05 | Outpatient (CLI) | payer BC ==
[~2022-01-05] VITALS: Ht 189 cm; Wt 104.0 kg
[~2022-01-05] MED LIST changes: +PENI500T PO
== END | disposition home or self-care (01) ==
LOC: PREOP 05:41
PROVIDERS: ATTEND Surgery
DX: Z01.818 Encounter for other preprocedural examination (principal)

== ENCOUNTER → 2022-01-20 | Outpatient (CLI) | payer BC ==
[~2022-01-20] MED LIST changes: +ACET-2267 PO; +LEVO125T6 PO; +LISI1TAB46 PO; +LORA-405 PO; +PANT40TA2 PO
== END | disposition home or self-care (01) ==
LOC: PREOP 05:35
PROVIDERS: ATTEND Surgery
DX: Z01.818 Encounter for other preprocedural examination (principal)

== ENCOUNTER 2022-01-25 14:05 | Inpatient (IN) | payer BC ==
[~2022-01-25] VITALS: Ht 182.9 cm; Wt 110.7 kg
[~2022-01-25 14:05] MED LIST changes: -ACET-2267 PO; -LEVO125T6 PO; -LISI1TAB46 PO; -LORA-405 PO; -PANT40TA2 PO
[2022-01-25] MEDS ORDERED: NS IV 1000 ML 1,000 ML IV STA (14:56)
[2022-01-25 15:03] LABS: EOSINOPHILS % (AUTO) 0 % (0-10); HEMATOCRIT 36 % (40-54); HEMOGLOBIN 12.8 g/dL (13.3-17.7); MEAN CORPUSCULAR HGB CONC 35 g/dL (32-36)
[2022-01-25 15:05] LABS: BASOPHILS # (AUTO) 0.1 10^3/uL (0.0-0.1); BASOPHILS % (AUTO) 1 % (0-10); LYMPHOCYTES # (AUTO) 0.8 10^3/uL (1.0-4.0); LYMPHOCYTES % (AUTO) 8 % (12-44); MEAN CORPUSCULAR HEMOGLOBIN 36 pg (25-34); MEAN CORPUSCULAR VOLUME 101 fL (80-99); MEAN PLATELET VOLUME 9.9 fL (9.0-12.2); MONOCYTES # (AUTO) 0.9 10^3/uL (0.0-1.0); MONOCYTES % (AUTO) 8 % (0-12); NEUTROPHILS % (AUTO) 83 % (42-75); WHITE BLOOD COUNT 10.8 10^3/uL (4.3-11.0)
[2022-01-25 15:07] LABS: ALBUMIN 3.5 GM/DL (3.2-4.5)
[2022-01-25 15:08] LABS: CALCIUM 8.3 MG/DL (8.5-10.1)
[2022-01-25 15:09] LABS: PLATELET COUNT 38 10^3/uL (130-400)
[2022-01-25 15:10] LABS: TOTAL PROTEIN 7.9 GM/DL (6.4-8.2)
[2022-01-25 15:11] LABS: BILIRUBIN,TOTAL 10.2 MG/DL (0.1-1.0)
[2022-01-25 15:13] LABS: CREATININE SERUM 0.73 MG/DL (0.60-1.30)
[2022-01-25 15:16] LABS: BAND NEUTROPHILS 6 %; LYMPHOCYTES % (MANUAL) 8 %; MONOCYTES % (MANUAL) 8 %; NEUTROPHILS % (MANUAL) 78 %; PLATELET CLUMPS NONE SEEN; PLATELET ESTIMATE DECREASED; RBC MORPH NORMAL
[2022-01-25 15:18] LABS: POTASSIUM 2.4 MMOL/L (3.6-5.0)
[2022-01-25] MEDS ORDERED: fentaNYL INJ 100 MCG/2 ML AMP IVP STA ×2 (15:32→18:29)
--- NOTE | 2022-01-25 15:38 | ED Abdominal Pain ---
General Chief Complaint: Abdominal/GI Problems Stated Complaint: URINATING BLOOD,N/V Nursing Triage Note: PT AMB TO [facility] 4 WITH MOTHER WITH C/O BLOOD IN STOOL AND URINE X3 DAYS AND LOW ABD PAIN X3 DAYS. PT SAID HE HAS A SCHEDULED ANNMARIE WITH DR PEDRAZA ON MONDAY THIS WEEK Source of Information: Patient Exam Limitations: No Limitations History of Present Illness Date Seen by Provider: Jan 25, 2022 Time Seen by Provider: 15:35 Initial Comments Patient is a 51-year-old male who presents ED with suprapubic lower abdominal pain over the past 3 days. Pain describes sharp with pain in his lower back. Pain has been constant. Noted dark urine and bright red blood in his stool. He denies of any vomiting or diarrhea. States he was constipated but did have 4 bowel movements today. Denies of any rectal pain. He does have a umbilical hernia and known gallstones scheduled for surgery by Dr. Pedraza on . He denies blood thinner use or excessive NSAID use. History of alcohol abuse several years ago. Patient reports subjective fever. Denies chest pain, shortness of breath, headache, dizziness, visual changes, chest pain, shortness of breath, cough, headache, ear pain. Patient denies of any frequent urination, pain with urination Allergies and Home Medications Allergies Coded Allergies: meperidine HCl (Verified Allergy, Mild, 10/23/11) morphine (Verified Allergy, Mild, 10/23/11) tramadol (Verified Allergy, Mild, 10/23/11) Patient Home Medication List Home Medication List Reviewed: Yes Acetaminophen (Tylenol Extra Strength) 500 Mg Tablet, 1,000 MG PO Q8H PRN for PAIN-MILD (1-4), (Reported) Entered as Reported by: MAIN NARAYANAN on 01/26/221452 Last Action: Reviewed Levothyroxine Sodium (Levothyroxine Sodium) 125 Mcg Tablet, 125 MCG PO DAILY, (Reported) Entered as Reported by: MAIN NARAYANAN on 01/26/221452 Last Action: Reviewed Lisinopril/Hydrochlorothiazide (Lisinopril-Hctz 20-12.5 mg Tab) 20 Mg-12.5 Mg Tablet, 1 EA PO DAILY, (Reported) Entered as Reported by: MAIN NARAYANAN on 01/26/221452 Last Action: Reviewed Lorazepam (Ativan) 1 Mg Tablet, 1 MG PO QID Prescribed by: SHASTA PEDRAZA on 01/27/22 1634 Pantoprazole Sodium (Protonix) 40 Mg Tablet.dr, 40 MG PO DAILY Prescribed by: SHASTA PEDRAZA on 01/27/22 1634 Discontinued Medications Levothyroxine Sodium (Synthroid) 137 Mcg Tablet, 1 EACH PO DAILY, (Reported) Discontinued Reason: No Longer Taking Entered as Reported by: MARLON CARRERA on 10/23/11 1047 Last Action: Discontinued Penicillin V Potassium (Penicillin V Potassium) 500 Mg Tablet, 500 MG PO 6XDA EDILIA, (Reported) Discontinued Reason: No Longer Taking Entered as Reported by: XENIA LANGE on 01/06/22 0939 Last Action: Discontinued Review of Systems Review of Systems Constitutional: No chills, No diaphoresis, No malaise EENTM: No Double Vision, No Eye Pain, No Eye Tearing Respiratory: Denies Cough Cardiovascular: Denies No Symptoms Reported, Denies Chest Pain Gastrointestinal: Abdominal Pain; Denies Diarrhea, Denies Nausea; Rectal Bleeding; Denies Vomiting Genitourinary: Denies Burning, Denies Discharge; Hematuria Musculoskeletal: No back pain, No joint pain Skin: No change in color, No change in hair/nails Endocrine: Denies Excessive Sweating, Denies Flushing All Other Systems Reviewed Negative Unless Noted: Yes Past Xkljfwd-Qilggy-Ovykgb Hx Patient Social History Tobacco Use?: No Use of E-Cig and/or Vaping dev: No Substance use?: No Alcohol Use?: Yes Alcohol type: Beer Alcohol Frequency: Once in a while Pt feels they are or have been: No Immunizations Up To Date Influenza Vaccine Up-to-Date: Yes; Up-to-Date First/Initial COVID19 Vaccinat: 2020 Second COVID19 Vaccination Carl: 2020 Third COVID19 Vaccination Date: no Seasonal Allergies Seasonal Allergies: Yes Past Medical History Surgery/Hospitalization HX: APPY, HAND, T/A HTN, HYPOTHRYOIDISM Surgeries: Yes (Left hand, APPENDIX, TONSILLECTOMY) Adenoidectomy, Appendectomy, Orthopedic, Tonsillectomy Respiratory: No Cardiac: Yes High Cholesterol, Hypertension Neurological: No Genitourinary: Yes Prostate Problems Gastrointestinal: Yes (UMBILICAL HERNIA, COLITIS) Gall Bladder Disease Musculoskeletal: Yes (states flare ups of back pain) Chronic Back Pain Endocrine: Yes Hypothyroidsim HEENT: Yes (READERS) Cancer: No Psychosocial: Yes Anxiety, PTSD, Depression Integumentary: No Blood Disorders: No Physical Exam Vital Signs Vital Signs - First Documented 01/25/22 14:25 Temp 37.4 Pulse 107 Resp 16 B/P (MAP) 156/86 (109) Capillary Refill : Height/Weight/BMI Height: 6'1" Weight: 195lbs. oz. [id number]; 29.11 BMI Method:Stated General Appearance: WD/WN, no apparent distress HEENT: PERRL/EOMI, normal ENT inspection, TMs normal, pharynx normal Neck: non-tender, full range of motion, supple, normal inspection Respiratory: chest non-tender, lungs clear, normal breath sounds, no respiratory distress, no accessory muscle use Cardiovascular: regular rate, rhythm, no edema, no gallop, no JVD Gastrointestinal: normal bowel sounds, soft, no organomegaly, no pulsatile mass, tenderness (Suprapubic tenderness on palpation. 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, no motor/sensory deficits, alert, normal mood/affect Skin: normal color, warm/dry Progress/Results/Core Measures Results/Orders Lab Results Laboratory Tests Test 01/25/22 14:35 01/25/22 14:38 01/25/22 15:50 Range/Units Prothrombin Time 18.5 H 12.2-14.7 SEC INR Comment 1.5 H 0.8-1.4 Activated Partial Thromboplast Time 51 H 24-35 SEC Magnesium Level 1.4 L 1.6-2.4 MG/DL Direct Bilirubin 5.5 H 0.0-0.3 MG/DL Hepatitis A IgM Antibody Non-Reactive Non-Reactive Hepatitis B Surface Antigen Non-Reactive Non-Reactive Hepatitis B Core IgM Antibody Non-Reactive Non-Reactive Hepatitis C Antibody Non-Reactive Non-Reactive White Blood Count 10.8 4.3-11.0 10^3/uL Red Blood Count 3.59 L 4.30-5.52 10^6/uL Hemoglobin 12.8 L 13.3-17.7 g/dL Hematocrit 36 L 40-54 % Mean Corpuscular Volume 101 H 80-99 fL Mean Corpuscular Hemoglobin 36 H 25-34 pg Mean Corpuscular Hemoglobin Concent 35 32-36 g/dL Red Cell Distribution Width 15.2 H 10.0-14.5 % Platelet Count 38 *L 130-400 10^3/uL Mean Platelet Volume 9.9 9.0-12.2 fL Immature Granulocyte % (Auto) 0 % Neutrophils (%) (Auto) 83 H 42-75 % Lymphocytes (%) (Auto) 8 L 12-44 % Monocytes (%) (Auto) 8 0-12 % Eosinophils (%) (Auto) 0 0-10 % Basophils (%) (Auto) 1 0-10 % Neutrophils # (Auto) 9.0 H 1.8-7.8 10^3/uL Lymphocytes # (Auto) 0.8 L 1.0-4.0 10^3/uL Monocytes # (Auto) 0.9 0.0-1.0 10^3/uL Eosinophils # (Auto) 0.0 0.0-0.3 10^3/uL Basophils # (Auto) 0.1 0.0-0.1 10^3/uL Immature Granulocyte # (Auto) 0.0 0.0-0.1 10^3/uL Neutrophils % (Manual) 78 % Lymphocytes % (Manual) 8 % Monocytes % (Manual) 8 % Band Neutrophils 6 % Platelet Estimate DECREASED Clumped Platelets NONE SEEN Percent Immature Platelet Fraction 3.8 0.0-7.6 % Blood Morphology Comment NORMAL Sodium Level 132 L 135-145 MMOL/L Potassium Level 2.4 *L 3.6-5.0 MMOL/L Chloride Level 89 L 98-107 MMOL/L Carbon Dioxide Level 23 21-32 MMOL/L Anion Gap 20 H 5-14 MMOL/L Blood Urea Nitrogen 8 7-18 MG/DL Creatinine 0.73 0.60-1.30 MG/DL Estimat Glomerular Filtration Rate 109 BUN/Creatinine Ratio 11 Glucose Level 122 H 70-105 MG/DL Calcium Level 8.3 L 8.5-10.1 MG/DL Corrected Calcium 8.7 8.5-10.1 MG/DL Total Bilirubin 10.2 H 0.1-1.0 MG/DL Aspartate Amino Transf (AST/SGOT) 234 H 5-34 U/L Alanine Aminotransferase (ALT/SGPT) 45 0-55 U/L Alkaline Phosphatase 195 H 40-136 U/L C-Reactive Protein High Sensitivity 2.55 H 0.00-0.50 MG/DL Total Protein 7.9 6.4-8.2 GM/DL Albumin 3.5 3.2-4.5 GM/DL Lipase 242 H 8-78 U/L Serum Alcohol 56 H <10 MG/DL Urine Color YELLOW Urine Clarity CLEAR Urine pH 6.0 5-9 Urine Specific [place] 1.020 1.016-1.022 Urine Protein NEGATIVE NEGATIVE Urine Glucose (UA) TRACE H NEGATIVE Urine Ketones TRACE H NEGATIVE Urine Nitrite POSITIVE H NEGATIVE Urine Bilirubin 2+ H NEGATIVE Urine Urobilinogen 4.0 < = 1.0 MG/DL Urine Leukocyte Esterase NEGATIVE NEGATIVE Urine RBC (Auto) NEGATIVE NEGATIVE Urine RBC 0-2 /HPF Urine WBC 0-2 /HPF Urine Squamous Epithelial Cells 0-2 /HPF Urine Crystals NONE /LPF Urine Bacteria NEGATIVE /HPF Urine Casts PRESENT /LPF Urine Hyaline Casts 0-2 H /LPF Urine Mucus NEGATIVE /LPF Urine Culture Indicated NO My Orders Orders - JOHN GARCIA PA Ua Culture If Indicated (01/25/22 14:33) Cbc With Automated Diff (01/25/22 14:56) Comprehensive Metabolic Panel (01/25/22 14:56) Lipase (01/25/22 14:56) Ns Iv 1000 Ml (Sodium Chloride 0.9%) (01/25/22 14:56) Hs C Reactive Protein (01/25/22 14:56) Manual Differential (01/25/22 14:38) Fentanyl Inj (Sublimaze Injection) (01/25/22 15:32) Ct Abdomen/Pelvis W (01/25/22 15:33) Partial Thromboplastin Time (01/25/22 15:34) Protime With Inr (01/25/22 15:34) Magnesium (01/25/22 15:34) Potassium Cl 10meq/50ml Ivpb (Kcl 10 Meq (01/25/22 15:45) Iohexol Injection (Omnipaque 350 Mg/Ml 1 (01/25/22 15:45) Ns (Ivpb) (Sodium Chloride 0.9% Ivpb Bag (01/25/22 15:45) Ekg Tracing (01/25/22 15:38) Magnesium 1 Gm/100 Ml Ivpb (Magnesium Tabares (01/25/22 16:45) Alcohol (01/25/22 18:27) Fentanyl Inj (Sublimaze Injection) (01/25/22 18:29) Ondansetron Injection (Zofran Injectio (01/25/22 18:30) Ciprofloxacin Iv 400mg/200ml (Cipro Iv S (01/25/22 21:00) Type And Screen (01/25/22 18:30) Platelet Pheresis Lr (01/25/22 18:30) Medications Given in ED Vital Signs/I&O 01/25/22 14:25 Temp 37.4 Pulse 107 Resp 16 B/P (MAP) 156/86 (109) Blood Pressure Mean: 109 Comment Sinus tachycardia, left axis deviation, left ventricular hypertrophy, 102 bpm, QRS duration 109 MS, QTc 397 MS Departure Communication (Admissions) Time/Spoke to Admitting Phy: 18:28 Patient was discussed with Dr. Rehman who accepts patient. Consult with Dr. Pedraza. Communication (PCP) Patient is a 51-year-old male who presents ED with suprapubic pain with nausea dry heaving and bright red bloody stools. History of alcohol abuse. Denies of any alcohol use for 3 years. Patient with dry heaving here. Was given nausea medication patient was recently seen by Dr. Pedraza scheduled for cholecystectomy and umbilical hernia repair this . Not currently on blood thinners. Denies of any NSAID use. Patient refused Hemoccult test which I strongly recom mend to rule out blood in stool. Denies of any dark tarry stool more as bright red blood. Denies of any rectal pain. CT abdomen pelvis with liver cirrhosis, mesenteric edema, cholelithiasis and right kidney stone. Patient was given a round of IV pain medication. Patient was started on a liter of fluid. Potassium of 2.4 magnesium 1.4. Was given supplement IV potassium and mag nesium. Will likely need several rounds of IV potassium. Oral potassium was not given secondary to his dry heaving. Patient platelet count returned at 38. Hemoglobin of 12.2. Slight elevated coags. Denies of any hematemesis. no history of GI bleed. Patient denies history of liver cirrhosis. Patient denied alcohol. Alcohol level was added which was elevated. Patient did admit to drinking alcohol. Hepatitis panel was ordered. Due to the patient's current complaints potential GI bleed with abnormal lab work patient will be admitted for further evaluation. Consulted Dr. Pedraza who recommends starting on Cipro and Flagyl secondary to the colitis. No known history of ulcerative colitis. Clear liquid diet at this time. Recommended a unit of platelets secondary to low platelets and surgery on . IV Protonix was ordered. Patient was discussed with Dr. Recommend recommend admission for further evaluation with surgical consult. Patient will likely need colonoscopy or EGD for further evaluation Impression Primary Impression: Gallstones Additional Impressions: Calculus of kidney Abdominal pain Colitis Cirrhosis of liver UTI (urinary tract infection) Rectal bleeding Acute alcoholic hepatitis Disposition: ADMITTED INPATIENT Condition: Stable Admissions Decision to Admit Reason: Admit from ER (General) Decision to Admit/Date: Jan 25, 2022 Time/Decision to Admit Time: 18:28 Departure-Patient Inst. Referrals: NO,LOCAL PHYSICIAN (PCP/Family) Primary Care Physician Scripts Lorazepam (Ativan) 1 Mg Tablet 1 MG PO QID for 7 Days, #60 TAB Prov: SHASTA PEDRAZA MD 01/27/22 Pantoprazole Sodium (Protonix) 40 Mg Tablet. 40 MG PO DAILY, #90 TAB Prov: SHASTA PEDRAZA MD 01/27/22 JOHN GARCIA Jan 25, 2022 15:38
[2022-01-25 15:44] LABS: INR 1.5 (0.8-1.4); PROTHROMBIN TIME PATIENT 18.5 SEC (12.2-14.7)
[2022-01-25] MEDS ORDERED: IOHEXOL 350 MG/ML 100 ML (OMNIPAQUE 350) VIAL IV ONE (15:45)
[2022-01-25] MEDS ORDERED: NS 100 ML (IVPB) BAG IV ONE (15:45)
[2022-01-25] MEDS ORDERED: POTASSIUM CL 10MEQ/50ML IVPB 50 ML IV ONE (15:45)
[2022-01-25 16:00] LABS: CLARITY,URINE CLEAR; COLOR,URINE YELLOW; GLUCOSE, URINE (UA) TRACE (NEGATIVE); KETONES,URINE TRACE (NEGATIVE); LEUKOCYTE ESTERASE ,URINE NEGATIVE (NEGATIVE); NITRITE,URINE POSITIVE (NEGATIVE); PROTEIN,URINE NEGATIVE (NEGATIVE)
[2022-01-25 16:27] LABS: BACTERIA,URINE NEGATIVE /HPF; BILIRUBIN,URINE 2+ (NEGATIVE); HYALINE CASTS, URINE 0-2 /LPF; RBC,URINE 0-2 /HPF; SQUAMOUS EPITHELIAL CELL,UR 0-2 /HPF; WBC,URINE 0-2 /HPF
[2022-01-25] MEDS ORDERED: MAGNESIUM 1 GM/100 ML IVPB 100 ML IV ONE (16:45)
--- NOTE | 2022-01-25 17:18 | Diagnostic Imaging Report ---
PROCEDURE: CT abdomen and pelvis with contrast. TECHNIQUE: Multiple contiguous axial images were obtained through the abdomen and pelvis after administration of intravenous contrast. Auto Exposure Controls were utilized during the CT exam to meet ALARA standards for radiation dose reduction. All CT scans use one or more of the following dose optimizing techniques: Automated exposure control, MA and/or KvP adjustment based on patient size and exam type or iterative reconstruction. INDICATION: Suprapubic pain. Blood in stool and urine. COMPARISON: MRI abdomen 12/23/2021. CT abdomen and pelvis without contrast 12/12/2021. FINDINGS: Mild atelectasis in the lung bases. Cirrhotic nodular contour of the liver. The portal venous system is normally opacified. Cholelithiasis. The pancreas, spleen, adrenals, left kidney, ureters, and urinary bladder are unremarkable. Nonobstructing calyceal tip renal stone in the lower pole of the right kidney measures up to 0.5 cm. There is increasing bowel wall thickening throughout most of the colon. Increasing diffuse mesenteric edema and increasing fluid layering in the colic gutters. The appendix is not well seen and may be surgically absent. No free intraperitoneal air. No evidence of bowel obstruction. No acute osseous findings. Superior endplate height loss of multiple vertebral bodies in the thoracolumbar junction is stable. IMPRESSION: 1. Cirrhotic nodular contour of the liver. The portal venous system is normally opacified. 2. Increasing mesenteric edema and increasing fluid layering in the colic gutters. 3. Increasing bowel wall thickening/edema involving most of the colon suggesting a nonspecific colitis. 4. Cholelithiasis. 5. Nonobstructing calyceal tip renal stone in the lower pole of the right kidney is stable. Dictated by: Dictated on workstation # [id number]
[2022-01-25] MEDS ORDERED: ONDANSETRON 4 MG/2 ML (SDV) Z0FRAN IVP ONE (18:30)
[2022-01-25 20:30] VITALS: BP 159/87
[2022-01-25] MEDS ORDERED: NS IV 500 ML 500 ML ONE (20:40)
[2022-01-25 20:57] VITALS: BP 159/87
[2022-01-25] MEDS ORDERED: CIPROFLOXACIN IV 400MG/200ML 200 ML IV SCH (21:00)
[2022-01-25] MEDS ORDERED: ACETAMINOPHEN 500 MG TAB (TYLENOL) ONE (21:01)
[2022-01-25] MEDS ORDERED: fentaNYL INJ 100 MCG/2 ML AMP ONE (21:05)
[2022-01-25] MEDS: fentaNYL INJ 100 MCG/2 ML AMP IVP PRN ×2 (21:14→23:33)
[2022-01-25 21:15] VITALS: BP 168/89
[2022-01-25] MEDS ORDERED: ACETAMINOPHEN 500 MG TAB (TYLENOL) PO PRN (21:15)
[2022-01-25] MEDS ORDERED: NS IV 500 ML 500 ML IV SCH (21:30)
--- NOTE | 2022-01-25 22:23 | Progress Note-Pre Operative ---
Pre-Operative Progress Note H&P Reviewed The H&P was reviewed, patient examined and no changes noted. Date Seen by Provider: Jan 25, 2022 Time Seen by Provider: :30 Date H&P Reviewed: Jan 25, 2022 Time H&P Reviewed: :30 Pre-Operative Diagnosis: coffee ground emesis with hx liver cirrhosis SHASTA ZUNIGA MD Jan 25, 2022 22:23
[2022-01-25] MEDS ORDERED: ONDANSETRON 4 MG/2 ML (SDV) Z0FRAN IVP PRN (22:30)
[2022-01-25 22:48] VITALS: BP 168/81
[2022-01-25] MEDS ORDERED: POTASSIUM CL 10MEQ/50ML IVPB 100 ML IV ONE (22:54)
[2022-01-25 23:01] VITALS: BP 168/81
[2022-01-25] MEDS ORDERED: NS IV 1000 ML 1,000 ML ONE (23:05)
[2022-01-25] MEDS ORDERED: PROMETHAZINE INJ 25 MG/ML (PHENERGAN) AMP IVP PRN (23:15)
[2022-01-25] MEDS ORDERED: ceFAZolin 2 GM IV Premixed 50 ML IV ONE (23:15)
[2022-01-25] MEDS: metroNIDAZOLE 500MG/100ML IVPB 100 ML IV SCH (23:24)
[2022-01-25] MEDS: POTASSIUM CL 10 MEQ/50 ML IVPB (PRE-MIX) IV SCH (23:25)
[2022-01-25] MEDS: NS IV 1000 ML 1,000 ML IV SCH (23:28)
[2022-01-26] VITALS (9 sets, daily range): BP systolic 136–164; BP diastolic 78–88
[2022-01-26] MEDS: POTASSIUM CL 10 MEQ/50 ML IVPB (PRE-MIX) IV SCH (00:21)
[2022-01-26] MEDS: HYDROcodone/APAP 7.5 MG/325 MG (LORTAB, LORCET PLUS) TABLET PO PRN ×3 (01:39→23:23)
[2022-01-26] MEDS: fentaNYL INJ 100 MCG/2 ML AMP IVP PRN ×3 (03:23→08:11)
--- NOTE | 2022-01-26 05:49 | CONSULTATION REPORT ---
DATE OF SERVICE: HISTORY OF PRESENT ILLNESS: The patient is a 51-year-old male known to us. He was seen several weeks ago after he presented to the Emergency Department with several day history of pain in the epigastric region as well as right upper abdominal quadrant. This was associated with intermittent nausea and a few episodes of emesis. A CT scan was performed, which did show some gallbladder wall thickening as well as gallstones. He was also found to have hyperbilirubinemia with a bilirubin of 5.2. He did undergo an MRCP, which did not show any choledocholithiasis. There was liver cirrhosis identified and the likely cause of hyperbilirubinemia. He is scheduled for laparoscopic cholecystectomy; however, he presented to the Emergency Department today with crampy abdominal pain as well as nausea and vomiting and coffee-ground emesis. A CT scan was performed, which did show mild mesenteric inflammation next to the colon consistent with a nonspecific colitis. Again, gallstones identified. He was also found to be thrombocytopenic with a platelet number at 38,000. PAST MEDICAL HISTORY: Hypertension, hypothyroid, degenerative joint disease, peptic ulcer disease, symptomatic chronic calculous cholecystitis. PAST SURGICAL HISTORY: Tonsillectomy, appendectomy, left hand surgery. ALLERGIES: DEMEROL, MORPHINE, TRAMADOL. MEDICATIONS: Hydrochlorothiazide 25 mg daily, levothyroxine 137 mcg daily, potassium 20 mEq daily, prednisone 40 mg daily, hydrocodone p.r.n. SOCIAL HISTORY: Negative smoke. Positive for alcohol. FAMILY HISTORY: Father with lung cancer. Mother with stroke, hypertension. VITAL SIGNS: Temperature 37.4, blood pressure 168/89, pulse 109, respirations 18, pulse ox 95% on room air. REVIEW OF SYSTEMS: This is a well-nourished male, currently in no acute distress. He is not experiencing any cough or sputum production. No chest pain, palpitations or diaphoresis. Intermittent episodes of nausea as well as vomiting, which also did encompass the coffee-ground emesis. Does not report any episodes of diarrhea as well as no red blood per rectum, no dark tarry stools. No fever or chills. No recent inadvertent weight loss. All other review of systems negative. Physical examination will be assessed in a.m. The majority of the history and physical was ascertained by the emergency room staff as well as the patient's electronic medical records. LABORATORY DATA: WBC 10.8, hemoglobin 12.8, hematocrit 36, platelets 38,000. BUN 8, creatinine 0.73, potassium 2.4. Total bilirubin 10.2, direct bilirubin 5.5, AST 234, ALT 45, alkaline phosphatase 195. INR 1.5. Serum alcohol 0.56. Urinalysis, positive nitrites, 2+ bilirubin. ASSESSMENT AND PLAN: A 51-year-old male with liver cirrhosis and liver failure with symptomatic chronic calculous cholecystitis. He presented today with crampy abdominal pain as well as nausea and vomiting and CT scan findings consistent with a nonspecific colitis. He also presented with coffee-ground emesis. He is also found to be thrombocytopenic. On this admission, we will proceed with an EGD and possible colonoscopy. If the patient's clinical status normalizes, we will then proceed with a laparoscopic cholecystectomy. Also, finding on the CT scan was an umbilical hernia and if he does go to surgery, we will also repair this at the same time. Job ID: [id number] DocumentID: [id number] Dictated Date: 01/25/2022 22:17:50 Parking Meter Attendant Date: 01/26/2022 05:23:21 Dictated By: SHASTA ZUNIGA MD
[2022-01-26 05:51] LABS: HEMATOCRIT 34 % (40-54)
[2022-01-26 05:53] LABS: BASOPHILS % (AUTO) 0 % (0-10); EOSINOPHILS % (AUTO) 0 % (0-10); HEMOGLOBIN 12.3 g/dL (13.3-17.7); LYMPHOCYTES # (AUTO) 0.9 10^3/uL (1.0-4.0); LYMPHOCYTES % (AUTO) 8 % (12-44); MEAN CORPUSCULAR HEMOGLOBIN 36 pg (25-34); MEAN CORPUSCULAR HGB CONC 36 g/dL (32-36); MEAN CORPUSCULAR VOLUME 99 fL (80-99); MEAN PLATELET VOLUME 10.2 fL (9.0-12.2); MONOCYTES # (AUTO) 0.9 10^3/uL (0.0-1.0); MONOCYTES % (AUTO) 9 % (0-12); NEUTROPHILS # (AUTO) 8.3 10^3/uL (1.8-7.8); NEUTROPHILS % (AUTO) 81 % (42-75); WHITE BLOOD COUNT 10.2 10^3/uL (4.3-11.0)
[2022-01-26 05:56] LABS: PLATELET COUNT 36 10^3/uL (130-400)
[2022-01-26 06:04] LABS: CREATININE SERUM 0.7 MG/DL (0.60-1.30); POTASSIUM 2.3 MMOL/L (3.6-5.0)
[2022-01-26] MEDS: POTASSIUM CL 10MEQ/50ML IVPB 50 ML IV SCH ×6 (06:24→23:23)
[2022-01-26] MEDS ORDERED: ceFAZolin 2 GM IV Premixed 50 ML IV ONE (08:00)
[2022-01-26] MEDS ORDERED: CATHETER FLUSH 10 ML SYR IV PRN (08:00)
[2022-01-26] MEDS: PANTOPRAZOLE 40 MG (PROTONIX) VIAL IV SCH ×2 (08:12→20:05)
[2022-01-26] MEDS ORDERED: NS (IVPB) 250 ML ONE ×2 (08:23→17:49)
[2022-01-26] MEDS: metroNIDAZOLE 500MG/100ML IVPB 100 ML IV SCH ×2 (08:34→20:32)
[2022-01-26] MEDS: NS IV 1000 ML 1,000 ML IV SCH (08:34)
[2022-01-26] MEDS: CIPROFLOXACIN 400 MG/D5W 200 ML (PRE-MIX) IV SCH ×2 (09:31→21:45)
[2022-01-26] MEDS ORDERED: LIDOCAINE JELLY 2% 6 ML SYRINGE MM PRN (11:30)
[2022-01-26] MEDS ORDERED: LACTATED RINGERS 1,000 ML IV STA (11:30)
[2022-01-26] MEDS ORDERED: HURRICAINE EXT TUBE (BENZOCAINE) XX PRN (11:30)
[2022-01-26 12:01] LABS: CREATININE SERUM 0.69 MG/DL (0.60-1.30)
[2022-01-26 12:09] LABS: POTASSIUM 2.4 MMOL/L (3.6-5.0)
[2022-01-26] MEDS ORDERED: LORazepam 1 MG (ATIVAN) TAB PO PRN ×2 (12:30→16:45)
--- NOTE | 2022-01-26 13:12 | Progress Note ---
Standard Progress Note Progress Notes/Assess & Plan Date Seen by a Provider: Jan 26, 2022 Time Seen by a Provider: 12:00 Progress/Assessment & Plan agitated, showing signs asterixis. hypokalemic and thrombocytopenic. known chronic calculous cholecystitis PE: chest-few scattered rhales bilat. heart-regular heent-scleral icterus. extr-no LE edema, neg homans abd-slight distention, umbilical hernia SHASTA ZUNIGA MD Jan 26, 2022 13:12
[2022-01-26] MEDS: CATHETER FLUSH 10 ML SYR IV SCH ×2 (14:07→19:09)
[2022-01-26] MEDS ORDERED: ACET-2267 PO (14:53)
[2022-01-26] MEDS ORDERED: LEVO125T6 PO (14:53)
[2022-01-26] MEDS ORDERED: LISI1TAB46 PO (14:53)
--- NOTE | 2022-01-26 16:39 | History & Physical-Hospitalist ---
History of Present Illness HPI/Chief Complaint Tacos Elise is a 51 year old male with PMH HTN, hypothyroidism, alcohol dependence, who presented with abdominal pain. He was complaining of suprapubic pain. He also had back pain. He reports nausea and dry heaving. He has not vomited or had hematemesis. He reports having some bright red blood in his stools. He drinks alcohol, reportedly a couple drinks a few days per week. He initially denied use but then admitted to drinking when an alcohol level was added to his blood work. He says he has been to a "28 day program" but says that he was released after 14 days after being told that he was "not an alcoholic". He denies any history of liver disease or cirrhosis. He denies drug use. He does not smoke cigarettes. Source: patient, family Exam Limitations: no limitations Date Seen 01/26/22 Time Seen by a Provider: 11:10 Attending Physician No,Local Physician PCP Admitting Physician: Kait Candelaria MD Attending Physician: Kait Candelaria MD Referring Physician Date of Admission Jan 25, 2022 at 18:33 Home Medications & Allergies Home Medications Reviewed patient Home Medication Reconciliation performed by pharmacy medication reconciliations advanced manufacturing technician and/or nursing. Patients Allergies have been reviewed. Allergies Allergies Coded Allergies meperidine HCl (Verified Allergy, Mild, 10/23/11) morphine (Verified Allergy, Mild, 10/23/11) tramadol (Verified Allergy, Mild, 10/23/11) Past Qvmkfac-Dkehny-Qrigmk Hx Patient Social History Tobacco Use?: No Smoking Status: Never a Smoker Smokeless type used: Chew Smokeless Tobacco Frequency: User Current Status Unk Use of E-Cig and/or Vaping dev: No Substance use?: No Alcohol Use?: Yes Alcohol type: Beer Alcohol Frequency: Once in a while Pt feels they are or have been: No Immunizations Up To Date Date of Influenza Vaccine: Apr 16, 2013 First/Initial COVID19 Vaccinat: 2020 Second COVID19 Vaccination Carl: 2020 Tetanus Booster (TDap): Unknown Seasonal Allergies Seasonal Allergies: Yes Current Status Advance Directives: Unable to obtain Communicates: Verbally Primary Language: German Preferred Spoken Language: German Is interpretation needed?: No Sensory deficits: Vision impairment Implanted or Applied Medical D: Orthopedic hardware Past Medical History Surgeries: Adenoidectomy, Appendectomy, Orthopedic, Tonsillectomy High Cholesterol, Hypertension Prostate Problems Gall Bladder Disease Chronic Back Pain Hypothyroidsim Anxiety, PTSD, Depression Blood Disorders: No Family Medical History No Pertinent Family Hx Review of Systems Constitutional: fever EENTM: no symptoms reported Respiratory: no symptoms reported Cardiovascular: no symptoms reported Gastrointestinal: abdominal pain, nausea Genitourinary: no symptoms reported Musculoskeletal: no symptoms reported Skin: no symptoms reported Psychiatric/Neurological: No Symptoms Reported Physical Exam Physical Exam Vital Signs Vital Signs - First Documented 01/25/22 14:25 Temp 37.4 Pulse 107 Resp 16 B/P (MAP) 156/86 (109) Capillary Refill : Height, Weight, BMI Height: 6'1" Weight: 195lbs. oz. [id number]; 33.09 BMI Method:Stated General Appearance: No Apparent Distress, Obese HEENT: PERRL/EOMI, Pharynx Normal, Scleral Icterus (L), Scleral Icterus (R) Neck: Normal Inspection, Supple Respiratory: Lungs Clear, Normal Breath Sounds, No Respiratory Distress Cardiovascular: No Murmur, Tachycardia Gastrointestinal: Normal Bowel Sounds, Non Tender, Soft Extremity: No Inflammation; Pedal Edema, Swelling Neurologic/Psychiatric: Alert, Oriented x3, Other (no asterixis, flat affect) Skin: Warm/Dry, Jaundice Results Results/Procedures Labs Laboratory Tests 01/25/22 14:38 01/26/22 05:44 01/26/22 11:25 Patient resulted labs reviewed. Imaging: Reviewed Imaging Films, Reviewed Imaging Report Assessment/Plan Admission Diagnosis Acute alcoholic hepatitis Admission Status: Inpatient Order (span 2 midnights) Reason for Inpatient Admission: End stage liver disease Assessment and Plan Acute alcoholic hepatitis Decompensated alcoholic cirrhosis Alcohol dependence Thrombocytopenia GI bleeding Fever, elevated LFTs (AST>>>ALT), abdominal pain Bilirubin significantly elevated, profound thrombocytopenia CT consistent with cirrhosis, colitis likely secondary to ascites, cholelithiasis, nonobstructing renal stone GI bleeding likely secondary to hemorrhoids, hemogobin stable, no further bleeding at this time IV PPI BID Cipro and Flagyl for colitis, though likely secondary to ascites MDF 31, may benefit from glucocorticoid therapy for alcoholic hepatitis Consider methylprednisolone if no evidence of active infection identified MELD-Na score 25, 15% 90-day mortality risk Child-Mondragon class B, 30% perioperative mortality risk Advise against performing elective surgery in setting of decompensated hepatic cirrhosis Platelet transfusion not indicated, no active bleeding Transfuse platelets for <10, <50 with bleeding Hyponatremia Hypokalemia Hypomagnesemia Monitor and correct electrolytes as able Electrolyte replacement protocol HTN Continue Lisinopril Hypothyroidism Continue Synthroid Obesity Clinically significant, no acute management needs DVT prophylaxis: held due to thrombocytopenia Diagnosis/Problems Diagnosis/Problems (1) Acute alcoholic hepatitis Status: Acute (2) Decompensated hepatic cirrhosis Status: Acute (3) Alcohol dependence with acute alcoholic intoxication Status: Acute Qualifiers: Complication of substance-induced condition: uncomplicated Qualified Codes: F10.220 - Alcohol dependence with intoxication, uncomplicated (4) Thrombocytopenia Status: Acute (5) GI bleed Status: Acute (6) Hypokalemia Status: Acute (7) Hypomagnesemia Status: Acute (8) Hyponatremia Status: Acute (9) HTN (hypertension) Status: Chronic (10) Hypothyroidism Status: Chronic (11) Obesity Status: Chronic (12) Cholelithiasis Status: Chronic Qualifiers: Cholelithiasis location: gallbladder Cholecystitis presence: without cholecystitis Biliary obstruction: without biliary obstruction Qualified Codes: K80.20 - Calculus of gallbladder without cholecystitis without obstruction (13) Renal stone Status: Chronic (14) Umbilical hernia KAIT CANDELARIA MD Jan 26, 2022 16:39
[2022-01-26] MEDS ORDERED: ANTACID SUSP 30 ML UDC (MYLANTA) PO PRN (17:00)
[2022-01-26] MEDS ORDERED: 1/2 NS IV SOLUTION 1,000 ML IV PRN (17:00)
[2022-01-26] MEDS ORDERED: SENNA W/DOCUSATE (SENOKOT S) TABLET PO PRN (17:00)
[2022-01-26] MEDS ORDERED: D5 1/2 NS 1000 ML IV SOLUTION 1,000 ML IV PRN (17:00)
[2022-01-26] MEDS ORDERED: ONDANSETRON 4 MG (ZOFRAN) ORAL DISSOLVE TAB SL PRN (17:00)
[2022-01-26] MEDS ORDERED: lisINopril 20 MG (PRINIVIL) TABLET PO NR (17:15)
[2022-01-26] MEDS: LORazepam 1 MG (ATIVAN) TAB PO PRN (17:51)
[2022-01-26] MEDS: THIAMINE INJECTION 100 MG, FOLIC ACID INJECTION 1 MG, MAGNESIUM SULFATE 2 GM, VITAMIN M... IV SCH ×5 (18:10)
[2022-01-26 21:23] LABS: HEPATITIS C ANTIBODY C Non-Reactive (Non-Reactive)
[2022-01-27] MEDS: POTASSIUM CL 10MEQ/50ML IVPB 50 ML IV SCH ×9 (00:37→12:35)
[2022-01-27] MEDS ORDERED: NS IV 500 ML 500 ML ONE (01:31)
[2022-01-27] MEDS ORDERED: NS IV 500 ML 500 ML IV ONE (01:45)
[2022-01-27 03:21] VITALS: BP 130/75
[2022-01-27 05:34] LABS: EOSINOPHILS # (AUTO) 0.1 10^3/uL (0.0-0.3); EOSINOPHILS % (AUTO) 2 % (0-10); MEAN CORPUSCULAR VOLUME 103 fL (80-99)
[2022-01-27 05:36] LABS: BASOPHILS % (AUTO) 0 % (0-10); HEMATOCRIT 34 % (40-54); HEMOGLOBIN 11.8 g/dL (13.3-17.7); LYMPHOCYTES # (AUTO) 1.5 10^3/uL (1.0-4.0); LYMPHOCYTES % (AUTO) 16 % (12-44); MEAN CORPUSCULAR HEMOGLOBIN 36 pg (25-34); MEAN CORPUSCULAR HGB CONC 35 g/dL (32-36); MEAN PLATELET VOLUME 10.8 fL (9.0-12.2); MONOCYTES # (AUTO) 0.9 10^3/uL (0.0-1.0); MONOCYTES % (AUTO) 11 % (0-12); NEUTROPHILS # (AUTO) 6.3 10^3/uL (1.8-7.8); NEUTROPHILS % (AUTO) 70 % (42-75); PLATELET COUNT 40 10^3/uL (130-400); WHITE BLOOD COUNT 8.9 10^3/uL (4.3-11.0)
[2022-01-27 05:56] LABS: ALBUMIN 3.3 GM/DL (3.2-4.5)
[2022-01-27 05:57] LABS: CALCIUM 7.6 MG/DL (8.5-10.1)
[2022-01-27 05:58] LABS: TOTAL PROTEIN 7.2 GM/DL (6.4-8.2)
[2022-01-27 06:00] LABS: BILIRUBIN,TOTAL 9.2 MG/DL (0.1-1.0)
[2022-01-27 06:02] LABS: CREATININE SERUM 0.69 MG/DL (0.60-1.30); POTASSIUM 2.4 MMOL/L (3.6-5.0)
[2022-01-27] MEDS: CATHETER FLUSH 10 ML SYR IV SCH ×3 (06:06→20:29)
[2022-01-27] MEDS: KCL 20 MEQ TAB (K-DUR) PO SCH (06:12)
[2022-01-27] MEDS: MAGNESIUM 1 GM/100 ML IVPB 100 ML IV SCH (06:27)
[2022-01-27] MEDS: LEVOTHYROXINE 125 MCG (LEVOTHROID) TABLET PO SCH (06:52)
[2022-01-27 07:38] VITALS: BP 141/82
[2022-01-27] MEDS: CIPROFLOXACIN 400 MG/D5W 200 ML (PRE-MIX) IV SCH ×2 (08:27→20:28)
[2022-01-27] MEDS: metroNIDAZOLE 500MG/100ML IVPB 100 ML IV SCH ×2 (08:27→20:28)
[2022-01-27] MEDS: lisINopril 20 MG (PRINIVIL) TABLET PO SCH (08:28)
[2022-01-27] MEDS: PANTOPRAZOLE 40 MG (PROTONIX) VIAL IV SCH ×2 (08:28→20:25)
[2022-01-27] MEDS: THIAMINE INJECTION 100 MG, FOLIC ACID INJECTION 1 MG, MAGNESIUM SULFATE 2 GM, VITAMIN M... IV SCH ×5 (10:43)
[2022-01-27 11:14] VITALS: BP 133/74
[2022-01-27] MEDS: HYDROcodone/APAP 7.5 MG/325 MG (LORTAB, LORCET PLUS) TABLET PO PRN ×3 (12:33→22:59)
--- NOTE | 2022-01-27 14:13 | Progress Note - Hospitalist ---
Subjective HPI/CC On Admission Date Seen by Provider: Jan 27, 2022 Time Seen by Provider: 09:50 Tacos Elise is a 51 year old male with PMH HTN, hypothyroidism, alcohol dependence, who presented with abdominal pain. He was complaining of suprapubic pain. He also had back pain. He reports nausea and dry heaving. He has not vomit ed or had hematemesis. He reports having some bright red blood in his stools. He drinks alcohol, reportedly a couple drinks a few days per week. He initially denied use but then admitted to drinking when an alcohol level was added to his blood work. He says he has been to a "28 day program" but says that he was released after 14 days after being told that he was "not an alcoholic". He denies any history of liver disease or cirrhosis. He denies drug use. He does not smoke cigarettes. Subjective/Events-last exam He is feeling better. He slept well last night. He denies abdominal pain. He has not had any nausea or vomiting. He had a bowel movement with a small amount of blood on the toilet paper. Objective Exam Vital Signs Vital Signs Date Time Temp Pulse Resp B/P (MAP) Pulse Ox O2 Delivery O2 Flow Rate FiO2 01/27/22 13:00 90 01/27/22 11:14 37.5 18 133/74 (93) 90 Room Air Capillary Refill : General Appearance: No Apparent Distress, Chronically ill, Obese Respiratory: Lungs Clear, No Respiratory Distress Cardiovascular: Regular Rate, Rhythm, No Murmur Gastrointestinal: Normal Bowel Sounds, Soft, Distended Extremity: Normal Inspection, Pedal Edema Neurologic/Psychiatric: Alert, Depressed Affect Skin: Warm/Dry, Jaundice Results/Procedures Lab Laboratory Tests 01/27/22 05:24 Patient resulted labs reviewed. Imaging: Reviewed Imaging Films, Reviewed Imaging Report Assessment/Plan Assessment and Plan Assess & Plan/Chief Complaint Acute alcoholic hepatitis Decompensated alcoholic cirrhosis Alcohol dependence Thrombocytopenia GI bleeding Fever, elevated LFTs (AST>>>ALT), abdominal pain Bilirubin significantly elevated, profound thrombocytopenia CT consistent with cirrhosis, colitis likely secondary to ascites, carmen lithiasis, nonobstructing renal stone GI bleeding likely secondary to hemorrhoids, hemogobin stable, no further bleeding at this time IV PPI BID Cipro and Flagyl for colitis, though likely secondary to ascites MDF ~30, may benefit from glucocorticoid therapy for alcoholic hepatitis Consider methylprednisolone if no evidence of active infection identified MELD-Na score 25, 15% 90-day mortality risk Child-Mondragon class B, 30% perioperative mortality risk Advise against performing elective surgery in setting of decompensated hepatic cirrhosis Platelet transfusion not indicated, no active bleeding Transfuse platelets for <10, <50 with bleeding Hyponatremia Hypokalemia Hypomagnesemia Monitor and correct electrolytes as able Electrolyte replacement protocol HTN Continue Lisinopril Hypothyroidism Continue Synthroid Obesity Clinically significant, no acute management needs DVT prophylaxis: held due to thrombocytopenia Diagnosis/Problems Diagnosis/Problems (1) Acute alcoholic hepatitis Status: Acute (2) Decompensated hepatic cirrhosis Status: Acute (3) Alcohol dependence with acute alcoholic intoxication Status: Acute Qualifiers: Complication of substance-induced condition: uncomplicated Qualified Codes: F10.220 - Alcohol dependence with intoxication, uncomplicated (4) Thrombocytopenia Status: Acute (5) GI bleed Status: Acute (6) Hypokalemia Status: Acute (7) Hypomagnesemia Status: Acute (8) Hyponatremia Status: Acute (9) HTN (hypertension) Status: Chronic (10) Hypothyroidism Status: Chronic (11) Obesity Status: Chronic (12) Cholelithiasis Status: Chronic Qualifiers: Cholelithiasis location: gallbladder Cholecystitis presence: without ch olecystitis Biliary obstruction: without biliary obstruction Qualified Codes: K80.20 - Calculus of gallbladder without cholecystitis without obstruction (13) Renal stone Status: Chronic (14) Umbilical hernia MARY CANDELARIA MD Jan 27, 2022 14:12
[2022-01-27 15:30] VITALS: BP 138/80
--- NOTE | 2022-01-27 15:52 | Progress Note ---
Subjective Date Seen by a Provider: Jan 27, 2022 Time Seen by a Provider: 15:00 Subjective/Events-last exam doing ok. tolerating diet. hypokalemic. tbil decrease slightly. no significant abd pain. Objective Exam Vital Signs Date Time Temp Pulse Resp B/P (MAP) Pulse Ox O2 Delivery O2 Flow Rate FiO2 01/27/22 13:00 90 01/27/22 11:14 37.5 86 18 133/74 (93) 90 Room Air 01/27/22 08:00 Room Air 01/27/22 07:38 37.4 92 18 141/82 (101) 92 Room Air 01/27/22 07:00 91 01/27/22 03:21 37.3 86 20 130/75 (93) 93 Room Air 01/27/22 01:47 82 01/26/22 23:56 37.1 92 20 150/88 (108) 94 Room Air 01/26/22 20:02 37.5 93 18 151/82 (105) 93 Room Air 01/26/22 19:59 Room Air 01/26/22 19:00 90 I & O0 01/27/22 07:00 Intake Total 1500 ml Balance 1500 ml Capillary Refill : General Appearance: No Apparent Distress HEENT: PERRL/EOMI Neck: Full Range of Motion Respiratory: Chest Non Tender Cardiovascular: Regular Rate, Rhythm Gastrointestinal: normal bowel sounds, soft Extremity: Normal Capillary Refill Neurologic/Psychiatric: Alert, Oriented x3 Skin: Normal Color Lymphatic: No Adenopathy Results Lab Laboratory Tests 01/26/22 17:51: Glucometer 109 01/26/22 23:52: Glucometer 110 01/27/22 05:04: Glucometer 92 01/27/22 05:24: White Blood Count 8.9, Red Blood Count 3.31L, Hemoglobin 11.8L, Hematocrit 34L, Mean Corpuscular Volume 103H, Mean Corpuscular Hemoglobin 36H, Mean Corpuscular Hemoglobin Concent 35, Red Cell Distribution Width 14.9H, Platelet Count 40L, Mean Platelet Volume 10.8, Immature Granulocyte % (Auto) 1, Neutrophils (%) (Auto) 70, Lymphocytes (%) (Auto) 16, Monocytes (%) (Auto) 11, Eosinophils (%) (Auto) 2, Basophils (%) (Auto) 0, Neutrophils # (Auto) 6.3, Lymphocytes # (Auto) 1.5, Monocytes # (Auto) 0.9, Eosinophils # (Auto) 0.1, Basophils # (Auto) 0.0, Immature Granulocyte # (Auto) 0.1, Percent Immature Platelet Fraction 6.8, [place] um Level 130L, Potassium Level 2.4*L, Chloride Level 89L, Carbon Dioxide Level 28, Anion Gap 13, Blood Urea Nitrogen 6L, Creatinine 0.69, Estimat Glomerular Filtration Rate 111, BUN/Creatinine Ratio 9, Glucose Level 90, Calcium Level 7.6L, Corrected Calcium 8.2L, Magnesium Level 2.0, Total Bilirubin 9.2H, Aspartate Amino Transf (AST/SGOT) 212H, Alanine Aminotransferase (ALT/SGPT) 43, Alkaline Phosphatase 152H, Total Protein 7.2, Albumin 3.3 Microbiology 01/26/22 MRSA Screen - Final, Complete MRSA not isolated Assessment/Plan Assessment/Plan Assess & Plan/Chief Complaint acute hepatic failure. cont medical management. correct electrolytes. gallbladder and hernia have to be addressed at another time. SHASTA ZUNIGA MD Jan 27, 2022 15:52
[2022-01-27] MEDS: LORazepam 1 MG (ATIVAN) TAB PO PRN ×3 (16:12→22:59)
[2022-01-27] MEDS ORDERED: PANT40TA2 PO (16:34)
[2022-01-27] MEDS ORDERED: LORA-405 PO (16:34)
--- NOTE | 2022-01-27 16:36 | Discharge Inst-Surgical ---
D/C Lap Instructions-KIDO New, Converted, or Re-Newed RX: RX on Chart Follow Up Appt in 1 week Activity as tolerated Low sodium(<2g/day) and water restriction(<2L/day) High Fiber Diet 25g or more per day Avoid Alcohol, Caffeine, Spicy [place] and Acid foods. Symptoms to Report: Fever over 101 degree F, Nausea/Vomiting If any problems/questions: Contact your physician or go to Emergency Room SHASTA ZUNIGA MD Jan 27, 2022 16:36
[2022-01-27 20:09] VITALS: BP 136/82
[2022-01-27 23:32] VITALS: BP 135/77
[2022-01-28 03:41] VITALS: BP 128/73
[2022-01-28] MEDS: CATHETER FLUSH 10 ML SYR IV SCH ×2 (06:12→14:21)
[2022-01-28] MEDS: LORazepam 1 MG (ATIVAN) TAB PO PRN (06:12)
[2022-01-28] MEDS: LEVOTHYROXINE 125 MCG (LEVOTHROID) TABLET PO SCH (06:12)
[2022-01-28 07:22] VITALS: BP 140/76
[2022-01-28 08:17] LABS: HEMOGLOBIN 12.2 g/dL (13.3-17.7)
[2022-01-28 08:19] LABS: MEAN PLATELET VOLUME 10.6 fL (9.0-12.2); WHITE BLOOD COUNT 8.1 10^3/uL (4.3-11.0)
[2022-01-28 08:38] LABS: INR 1.7 (0.8-1.4); PROTHROMBIN TIME PATIENT 20.3 SEC (12.2-14.7)
[2022-01-28] MEDS: metroNIDAZOLE 500MG/100ML IVPB 100 ML IV SCH (08:45)
[2022-01-28] MEDS: CIPROFLOXACIN 400 MG/D5W 200 ML (PRE-MIX) IV SCH (08:45)
[2022-01-28 08:46] LABS: ALBUMIN 3.3 GM/DL (3.2-4.5); BILIRUBIN,TOTAL 8.8 MG/DL (0.1-1.0); CALCIUM 7.9 MG/DL (8.5-10.1); CREATININE SERUM 0.76 MG/DL (0.60-1.30); MAGNESIUM 2.2 MG/DL (1.6-2.4); TOTAL PROTEIN 7.3 GM/DL (6.4-8.2)
[2022-01-28] MEDS: lisINopril 20 MG (PRINIVIL) TABLET PO SCH (08:46)
[2022-01-28] MEDS: PANTOPRAZOLE 40 MG (PROTONIX) VIAL IV SCH (08:46)
[2022-01-28] MEDS: HYDROcodone/APAP 7.5 MG/325 MG (LORTAB, LORCET PLUS) TABLET PO PRN (08:46)
[2022-01-28 08:56] LABS: POTASSIUM 2.4 MMOL/L (3.6-5.0)
[2022-01-28] MEDS ORDERED: NS IV 500 ML 500 ML ONE (09:38)
[2022-01-28] MEDS: POTASSIUM CL 10MEQ/50ML IVPB 50 ML IV SCH ×5 (10:17→15:47)
--- NOTE | 2022-01-28 11:06 | Progress Note ---
Subjective Date Seen by a Provider: Jan 28, 2022 Time Seen by a Provider: 11:00 Subjective/Events-last exam doing better. labs improved. tolerating diet. ambulating well. Objective Exam Vital Signs Date Time Temp Pulse Resp B/P (MAP) Pulse Ox O2 Delivery O2 Flow Rate FiO2 01/28/22 08:00 Room Air 01/28/22 07:22 37.4 99 20 140/76 (97) 90 Room Air 01/28/22 07:00 95 01/28/22 03:41 36.8 92 18 128/73 (91) 92 Room Air 01/28/22 01:00 87 01/27/22 23:32 37.2 89 18 135/77 (96) 90 Room Air 01/27/22 20:09 37.4 87 18 136/82 (100) 93 Room Air 01/27/22 19:53 97 Room Air 01/27/22 19:00 100 01/27/22 15:30 37.4 92 18 138/80 (99) 93 Room Air 01/27/22 13:00 90 01/27/22 11:14 37.5 86 18 133/74 (93) 90 Room Air I & O 01/28/22 07:00 Intake Total 1870 ml Balance 1870 ml Capillary Refill : General Appearance: No Apparent Distress HEENT: PERRL/EOMI Neck: Full Range of Motion Respiratory: Chest Non Tender, Lungs Clear, Normal Breath Sounds Cardiovascular: Regular Rate, Rhythm Gastrointestinal: normal bowel sounds, non tender, soft Extremity: Normal Capillary Refill Neurologic/Psychiatric: Alert, Oriented x3 Skin: Normal Color Lymphatic: No Adenopathy Results Lab Laboratory Tests 01/27/22 17:00: Potassium Level 2.6L 01/28/22 07:53: Potassium Level 2.4*L, White Blood Count 8.1, Red Blood Count 3.42L, Hemoglobin 12.2L, Hematocrit 35L, Mean Corpuscular Volume 104H, Mean Corpuscular Hemoglobin 36H, Mean Corpuscular Hemoglobin Concent 35, Red Cell Distribution Width 15.1H, Platelet Count 48L, Mean Platelet Volume 10.6, Percent Immature Platelet Fraction 6.2, Prothrombin Time 20.3H, INR Comment 1.7H, Sodium Level 134L, Chloride Level 91L, Carbon Dioxide Level 27, Anion Gap 16H, Blood Urea Nitrogen 6L, Creatinine 0.76, Estimat Glomerular Filtration Rate 107, BUN/Creatinine Ratio 8, Glucose Level 90, Calcium Level 7.9L, Corrected Calcium 8.5, Magnesium Level 2.2, Total Bilirubin 8.8H, Aspartate Amino Transf (AST/SGOT) 214H, Alanine Aminotransferase (ALT/SGPT) 51, Alkaline Phosphatase 158H, Total Protein 7.3, Albumin 3.3 Microbiology 01/26/22 MRSA Screen - Final, Complete MRSA not isolated Assessment/Plan Assessment/Plan Assess & Plan/Chief Complaint acute hepatic failure. cont medical management. correct electrolytes. gallbladder and hernia have to be addressed at another time. home when ok with SHASTA GARY MD Jan 28, 2022 11:06
[2022-01-28 11:11] VITALS: BP 138/77
[2022-01-28] MEDS: KCL 20 MEQ TAB (K-DUR) PO SCH ×2 (11:19→12:46)
[2022-01-28] MEDS ORDERED: SPIRONOLACTONE 25 MG (ALDACTONE) TAB PO NR (11:30)
[2022-01-28] MEDS ORDERED: SPIR25TA5 PO (12:38)
[2022-01-28] MEDS ORDERED: KCL 20 MEQ TAB (K-DUR) PO ONE (13:00)
[2022-01-28] MEDS ORDERED: KCL 20 MEQ TAB (K-DUR) PO NR (13:00)
[2022-01-28] MEDS ORDERED: LEVO750T39 PO (14:00)
[2022-01-28] MEDS: MAGNESIUM 1 GM/100 ML IVPB 100 ML IV SCH (14:19)
[2022-01-28 15:18] VITALS: BP 139/84
--- NOTE | 2022-01-28 17:10 | Discharge Summary ---
Discharge Summary Hospital Course Problems/Dx: (1) Acute alcoholic hepatitis Status: Acute (2) Decompensated hepatic cirrhosis Status: Acute (3) Alcohol dependence with acute alcoholic intoxication Status: Acute Qualifiers: Qualified Codes: F10.220 - Alcohol dependence with intoxication, uncomplicated (4) Thrombocytopenia Status: Acute (5) GI bleed Status: Acute (6) Hypokalemia Status: Acute (7) Hypomagnesemia Status: Acute (8) Hyponatremia Status: Acute (9) HTN (hypertension) Status: Chronic (10) Hypothyroidism Status: Chronic (11) Obesity Status: Chronic (12) Cholelithiasis Status: Chronic Qualifiers: Qualified Codes: K80.20 - Calculus of gallbladder without cholecystitis without obstruction (13) Renal stone Status: Chronic (14) Umbilical hernia Hospital Course Date of Admission: Jan 25, 2022 at 18:33 Admission Diagnosis : Family Physician/Provider: No,Local Physician Date of Discharge: 01/28/22 Discharge Diagnosis: [ ] Hospital Course: [ ] Labs and Pending Lab Test: Laboratory Tests 01/28/22 07:53: White Blood Count 8.1, Red Blood Count 3.42L, Hemoglobin 12.2L, Hematocrit 35L, Mean Corpuscular Volume 104H, Mean Corpuscular Hemoglobin 36H, Mean Corpuscular Hemoglobin Concent 35, Red Cell Distribution Width 15.1H, Platelet Count 48L, Mean Platelet Volume 10.6, Percent Immature Platelet Fraction 6.2, Prothrombin Time 20.3H, INR Comment 1.7H, Sodium Level 134L, Potassium Level 2.4*L, Chloride Level 91L, Carbon Dioxide Level 27, Anion Gap 16H, Blood Urea Nitrogen 6L, Creatinine 0.76, Estimat Glomerular Filtration Rate 107, BUN/Creatinine Ratio 8, Glucose Level 90, Calcium Level 7.9L, Corrected Calcium 8.5, Magnesium Level 2.2, Total Bilirubin 8.8H, Aspartate Amino Transf (AST/SGOT) 214H, Alanine Aminotransferase (ALT/SGPT) 51, Alkaline Phosphatase 158H, Total Protein 7.3, Albumin 3.3 01/28/22 16:17: Potassium Level 3.1L Microbiology 01/26/22 MRSA Screen - Final, Complete MRSA not isolated Home Meds Active Levofloxacin 750 Mg Tablet 750 Mg PO DAILY 5 Days Spironolactone 25 Mg Tablet 25 Mg PO DAILY 30 Days Ativan (Lorazepam) 1 Mg Tablet 1 Mg PO QID 7 Days Protonix (Pantoprazole Sodium) 40 Mg Tablet.dr 40 Mg PO DAILY Reported Tylenol Extra Strength (Acetaminophen) 500 Mg Tablet 1,000 Mg PO Q8H PRN Lisinopril-Hctz 20-12.5 mg Tab (Lisinopril/Hydrochlorothiazide) 20 Mg-12.5 Mg Ta blet 1 Ea PO DAILY LAST FILLED 11-08-2021 #30 DAY SUPPLY Levothyroxine Sodium 125 Mcg Tablet 125 Mcg PO DAILY Discharge Physical Examination Vital Signs Vital Signs Date Time Temp Pulse Resp B/P (MAP) Pulse Ox O2 Delivery O2 Flow Rate FiO2 01/28/22 15:18 37.6 86 22 139/84 (102) 94 Room Air Allergies: Coded Allergies: meperidine HCl (Verified Allergy, Mild, 10/23/11) morphine (Verified Allergy, Mild, 10/23/11) tramadol (Verified Allergy, Mild, 10/23/11) Discharge Summary Date of Admission Jan 25, 2022 at 18:33 Date of Discharge Admission Diagnosis Acute alcoholic hepatitis Discharge Diagnosis Acute alcoholic hepatitis Decompensated alcoholic cirrhosis Alcohol dependence Thrombocytopenia GI bleeding Fever, elevated LFTs (AST>>>ALT), abdominal pain Bilirubin significantly elevated, profound thrombocytopenia CT consistent with cirrhosis, colitis likely secondary to ascites, cholelithiasis, nonobstructing renal stone GI bleeding likely secondary to hemorrhoids, hemogobin stable, no further bleeding at this time IV PPI BID Cipro and Flagyl for colitis, though likely secondary to ascites MDF ~32, may benefit from glucocorticoid therapy for alcoholic hepatitis Consider methylprednisolone if no evidence of active infection identified MELD-Na score 25, 15% 90-day mortality risk Child-Mondragon class B, 30% perioperative mortality risk Advise against performing elective surgery in setting of decompensated hepatic cirrhosis Platelet transfusion not indicated, no active bleeding Transfuse platelets for <10, <50 with bleeding Hyponatremia Hypokalemia Hypomagnesemia Monitor and correct electrolytes as able Electrolyte replacement protocol HTN Continue Lisinopril Hypothyroidism Continue Synthroid Obesity Clinically significant, no acute management needs DVT prophylaxis: held due to thrombocytopenia (1) Acute alcoholic hepatitis Status: Acute (2) Decompensated hepatic cirrhosis Status: Acute (3) Alcohol dependence with acute alcoholic intoxication Status: Acute Qualifiers: Qualified Codes: F10.220 - Alcohol dependence with intoxication, uncomplicated (4) Thrombocytopenia Status: Acute (5) GI bleed Status: Acute (6) Hypokalemia Status: Acute (7) Hypomagnesemia Status: Acute (8) Hyponatremia Status: Acute (9) HTN (hypertension) Status: Chronic (10) Hypothyroidism Status: Chronic (11) Obesity Status: Chronic (12) Cholelithiasis Status: Chronic Qualifiers: Qualified Codes: K80.20 - Calculus of gallbladder without cholecystitis without obstruction (13) Renal stone Status: Chronic (14) Umbilical hernia MARY CANDELARIA MD Jan 28, 2022 17:10
[2022-01-28 17:45] VITALS: BP 139/84
[2022-01-29] MEDS ORDERED: MULTIVIT W/MINERALS TAB (THERAGRAN M) PO SCH (07:00)
[2022-01-29] MEDS ORDERED: THIAMINE 100 MG (VITAMIN B-1) TAB PO SCH (07:00)
[2022-01-29] MEDS ORDERED: FOLIC ACID 1 MG TAB PO SCH (09:00)
== END 2022-01-28 17:45 | disposition home or self-care (01) | DRG 433 ==
LOC: EDUNIT# 14:05 → ER 14:07 → 4TH 18:33
PROVIDERS: ADMIT Internal Medicine; ATTEND Internal Medicine
DX: K70.10 Alcoholic hepatitis without ascites (principal); E87.1 Hypo-osmolality and hyponatremia; K92.1 Melena; N39.0 Urinary tract infection, site not specified; Y90.2 Blood alcohol level of 40-59 mg/100 ml; K74.60 Unspecified cirrhosis of liver; K52.9 Noninfective gastroenteritis and colitis, unspecified; F10.229 Alcohol dependence with intoxication, unspecified; D69.6 Thrombocytopenia, unspecified; E87.6 Hypokalemia; E83.42 Hypomagnesemia; I10 Essential (primary) hypertension; E03.9 Hypothyroidism, unspecified; E66.9 Obesity, unspecified; Z68.33 Body mass index [BMI] 33.0-33.9, adult; K80.20 Calculus of gallbladder without cholecystitis without obstruction; N20.0 Calculus of kidney; K42.9 Umbilical hernia without obstruction or gangrene; E78.00 Pure hypercholesterolemia, unspecified; F41.9 Anxiety disorder, unspecified; F43.10 Post-traumatic stress disorder, unspecified; F32.A Depression, unspecified; Z88.5 Allergy status to narcotic agent; H54.7 Unspecified visual loss
CPT/HCPCS: 36415; 74177; 80048; 80053; 80074; 80320; 81000; 82248; 82274; 82947; 83690; 83735; 84132; 85007; 85025; 85027; 85610; 85730; 86141; 86850; 86900; 86901; 87081; 87389; 93005

== ENCOUNTER → 2022-02-04 | Outpatient (CLI) | payer BC ==
[~2022-02-04] MED LIST changes: +ACET-2267 PO; +LEVO125T6 PO; +LEVO750T39 PO; +LISI1TAB46 PO; +LORA-405 PO; +MESA400C3 PO; +PANT40TA2 PO; +POTA99CA PO; +SPIR25TA5 PO
[2022-02-04 11:03] LABS: BASOPHILS # (AUTO) 0.1 10^3/uL (0.0-0.1); BASOPHILS % (AUTO) 1 % (0-10); EOSINOPHILS # (AUTO) 0.1 10^3/uL (0.0-0.3); EOSINOPHILS % (AUTO) 1 % (0-10); HEMATOCRIT 38 % (40-54); HEMOGLOBIN 13.1 g/dL (13.3-17.7); LYMPHOCYTES # (AUTO) 2.4 10^3/uL (1.0-4.0); LYMPHOCYTES % (AUTO) 23 % (12-44); MEAN CORPUSCULAR HEMOGLOBIN 35 pg (25-34); MEAN CORPUSCULAR HGB CONC 35 g/dL (32-36); MEAN CORPUSCULAR VOLUME 101 fL (80-99); MEAN PLATELET VOLUME 9.7 fL (9.0-12.2); MONOCYTES # (AUTO) 0.9 10^3/uL (0.0-1.0); MONOCYTES % (AUTO) 9 % (0-12); NEUTROPHILS # (AUTO) 7.1 10^3/uL (1.8-7.8); NEUTROPHILS % (AUTO) 66 % (42-75); PLATELET COUNT 137 10^3/uL (130-400); WHITE BLOOD COUNT 10.8 10^3/uL (4.3-11.0)
[2022-02-04 11:19] LABS: ALBUMIN 3.5 GM/DL (3.2-4.5); BILIRUBIN,TOTAL 7.5 MG/DL (0.1-1.0); CALCIUM 9.4 MG/DL (8.5-10.1); CREATININE SERUM 0.93 MG/DL (0.60-1.30); POTASSIUM 2.7 MMOL/L (3.6-5.0); TOTAL PROTEIN 8.3 GM/DL (6.4-8.2)
== END ==
LOC: LAB 10:22
PROVIDERS: ATTEND Nurse Practitioner Family
DX: D69.6 Thrombocytopenia, unspecified (principal); E80.7 Disorder of bilirubin metabolism, unspecified
CPT/HCPCS: 36415; 80053; 85025

== ENCOUNTER 2022-02-08 05:28 | Outpatient (RCR) | payer BC ==
[~2022-02-08] VITALS: Ht 182.9 cm; Wt 104.9 kg
[~2022-02-08 05:28] MED LIST changes: -MESA400C3 PO; -POTA99CA PO
[2022-02-08] MEDS ORDERED: POTA99CA PO (08:12)
[2022-02-09] MEDS ORDERED: MESA400C3 PO (14:42)
== END 2022-02-08 11:36 | disposition home or self-care (01) ==
LOC: PREOP 05:28
PROVIDERS: ATTEND Surgery
DX: Z01.818 Encounter for other preprocedural examination (principal); K21.9 Gastro-esophageal reflux disease without esophagitis; Z20.822 Contact with and (suspected) exposure to COVID-19; Z87.19 Personal history of other diseases of the digestive system
CPT/HCPCS: 87636

== ENCOUNTER 2022-02-09 11:24 | Day surgery (SDC) | payer BC ==
[~2022-02-09] VITALS: Ht 183 cm; Wt 104.9 kg
[~2022-02-09 11:24] MED LIST changes: +POTA99CA PO
[2022-02-09] MEDS ORDERED: LACTATED RINGERS 1,000 ML IV ONE (11:30)
[2022-02-09] MEDS ORDERED: LACTATED RINGERS 1,000 ML IV STA (11:32)
[2022-02-09] MEDS ORDERED: HURRICAINE EXT TUBE (BENZOCAINE) XX PRN (11:45)
[2022-02-09] MEDS ORDERED: LIDOCAINE JELLY 2% 6 ML SYRINGE MM PRN (11:45)
[2022-02-09 12:00] VITALS: BP 137/77
[2022-02-09 12:14] LABS: BASOPHILS # (AUTO) 0.1 10^3/uL (0.0-0.1); BASOPHILS % (AUTO) 1 % (0-10); EOSINOPHILS # (AUTO) 0.1 10^3/uL (0.0-0.3); EOSINOPHILS % (AUTO) 1 % (0-10); HEMATOCRIT 39 % (40-54); HEMOGLOBIN 13.7 g/dL (13.3-17.7); LYMPHOCYTES % (AUTO) 21 % (12-44); MEAN CORPUSCULAR HEMOGLOBIN 36 pg (25-34); MEAN CORPUSCULAR HGB CONC 35 g/dL (32-36); MEAN CORPUSCULAR VOLUME 102 fL (80-99); MONOCYTES % (AUTO) 10 % (0-12); NEUTROPHILS # (AUTO) 6.3 10^3/uL (1.8-7.8); NEUTROPHILS % (AUTO) 66 % (42-75); PLATELET COUNT 279 10^3/uL (130-400); WHITE BLOOD COUNT 9.5 10^3/uL (4.3-11.0)
--- NOTE | 2022-02-09 12:46 | Progress Note-Pre Operative ---
Pre-Operative Progress Note H&P Reviewed The H&P was reviewed, patient examined and no changes noted. Date Seen by Provider: Feb 09, 2022 Time Seen by Provider: 12:00 Date H&P Reviewed: Feb 09, 2022 Time H&P Reviewed: 12:00 Pre-Operative Diagnosis: hx anemia, coffee ground emesis, liver cirrhosis SHASTA ZUNIGA MD Feb 09, 2022 12:46
--- NOTE | 2022-02-09 12:47 | Discharge Inst-Surgical ---
D/C Lap Instructions-EFRAIN Follow Up Activity as tolerated High Fiber Diet 25g or more per day Avoid Alcohol, Caffeine, Spicy [employer] and Acid foods. Drink 64 fluid oz or more of fluids per day. Symptoms to Report: Fever over 101 degree F, Nausea/Vomiting If any problems/questions: Contact your physician or go to Emergency Room SHASTA ZUNIGA MD Feb 09, 2022 12:47
[2022-02-09 12:58] LABS: CREATININE SERUM 0.9 MG/DL (0.60-1.30); POTASSIUM 2.7 MMOL/L (3.6-5.0)
[2022-02-09] MEDS ORDERED: ONDANSETRON 4 MG/2 ML (SDV) Z0FRAN IVP PRN (13:00)
[2022-02-09] MEDS ORDERED: ONDANSETRON 4 MG (ZOFRAN) ORAL DISSOLVE TAB PO PRN (13:00)
[2022-02-09] MEDS ORDERED: MIDAZOLAM 2 MG/2 ML (VERSED) VIAL ONE (13:17)
[2022-02-09] MEDS ORDERED: PROPOFOL INJECTION 50 ML IV ONE ×2 (13:17→14:04)
[2022-02-09 14:15] VITALS: BP 93/58
[2022-02-09 14:20] VITALS: BP 96/64
--- NOTE | 2022-02-09 14:24 | Anesthesia-General Post-Op ---
MAC Patient Condition Mental Status/LOC: Same as Preop Cardiovascular: Satisfactory Nausea/Vomiting: Absent Respiratory: Satisfactory Pain: Controlled Complications: Absent Post Op Complications Complications None Follow Up Care/Instructions Patient Instructions None needed. Anesthesiology Discharge Order Discharge Order Patient is doing well, no complaints, stable vital signs, no apparent adverse anesthesia problems. No complications reported per nursing. DRAKE GAMEZ CRNA Feb 09, 2022 14:24
[2022-02-09 14:25] VITALS: BP 106/72
[2022-02-09] MEDS ORDERED: MESA400C3 PO (14:42)
--- NOTE | 2022-02-09 14:42 | Progress Note-Post Operative ---
Post-Operative Progess Note Surgeon (s)/Branch Associate (s) Surgeon SHASTA ZUNIGA MD Branch Associate: none Pre-Operative Diagnosis hx anemia, coffee ground emesis, liver cirrhosis Post-Operative Diagnosis reflux esophagitis(grade C), esophageal varices(stage 2), small HH(2cm), severe diffuse gastritis. chronic stage 2 ext and int hemorrhoids, proctitis and colitis sigmoid, desc, and cecum. Procedure & Operative Findings Date of Procedure 02/09/22 Procedure Performed/Findings EGD with bx. colonoscopy with bx. Anesthesia Type mac Estimated Blood Loss Estimated blood loss (mL): minimal Specimens/Packing Specimens Removed ge jxn, antrum, cecum, rectosigmoid, rectum SHASTA ZUNIGA MD Feb 09, 2022 14:42
[2022-02-09 15:00] VITALS: BP 131/87
--- NOTE | 2022-02-10 00:14 | OPERATIVE REPORT ---
DATE OF SERVICE: 02/09/2022 PREOPERATIVE DIAGNOSES: History of alcohol-induced acute hepatic failure, liver cirrhosis, abdominal pain, coffee-ground emesis, anemia, history of colitis. POSTOPERATIVE DIAGNOSES: Reflux esophagitis, Essex grade C; esophageal varices, grade II; small hiatal hernia 2 cm in size, severe gastritis, no active bleeding. Chronic stage II external and internal hemorrhoids, proctitis and colitis of the sigmoid, descending colon, as well as the cecum. No active bleeding. Small polyp of the transverse colon. PROCEDURE: EGD with biopsy, colonoscopy with biopsy and polypectomy. SURGEON: Shasta Zuniga MD. ANESTHESIA: Monitored anesthesia care. ESTIMATED BLOOD LOSS: Minimal. FINDINGS: Reflux esophagitis, Essex grade C; esophageal varices, grade II; small hiatal hernia 2 cm in size, severe gastritis, no active bleeding. Chronic stage II external and internal hemorrhoids, proctitis and colitis of the sigmoid, descending colon, as well as the cecum. No active bleeding. Small polyp of the transverse colon. DISPOSITION: The patient tolerated the procedure well. INDICATIONS: The patient is a 51-year-old male known to us. Several weeks ago, he presented to the Emergency Department with epigastric pain and right upper abdominal quadrant pain as well as intermittent episodes of nausea and coffee-ground emesis. CT scan was performed, which did show gallbladder wall thickening as well as gallstones. There was also found to be hyperbilirubinemic with a bilirubin of 5.2. He did undergo an MRCP, which did not show any choledocholithiasis. He had reported issues with coffee-ground emesis as well as a crampy abdominal pain, and on that CT scan in the emergency department, there was inflammation of the colon consistent with a nonspecific colitis as well. The patient was also admitted again for acute hepatic failure and did slowly improve over time. Due to his previous symptomatology, we will proceed with an EGD and colonoscopy. DESCRIPTION OF PROCEDURE: The patient was brought to the endoscopy suite, laid in the left lateral decubitus position. After adequate IV pain and sedative medications and monitored anesthesia care, the mouthpiece was applied. The endoscope was placed in the mouth, visualizing the pharynx and hypopharyngeal region. Vocal cords, epiglottis and vallecula identified and appeared to be normal. The endoscope was then gently intubated into the esophageal opening and esophagus insufflated. The endoscope was then advanced to the first, second and third portion of esophagus at the level of GE junction, a reflux esophagitis, Essex grade C identified. There were also esophageal varices, grade II identified encompassing less than one-third of the diameter visualizing a small hiatal hernia approximately 2 cm in size. There was a severe diffuse gastritis. No formal ulcerations or any bleeding sources identified. A biopsy was taken of the antrum to rule out H. pylori with visualization of good hemostasis. The endoscope was then advanced to the pylorus and the first and second portion of the duodenum, which appeared normal with no distal obstructions or any active bleeding sources. The endoscope was then slowly withdrawn while taking a second look and suctioning of residual air with no additional findings. A digital rectal examination was performed, which revealed chronic stage II external and internal hemorrhoids, not actively edematous nor inflamed and no bleeding. Normal sphincter tone was felt and there were no palpable masses. Prostate gland was palpable and appeared normal. The endoscope was then intubated into the anus and rectum gently insufflated. A proctitis was noted and this inflammation did continue on through the rectosigmoid junction where multiple biopsies were taken. The inflammation also did encompass the descending colon. In the area of the transverse colon, there did not appear to be any colitis. There was a small polyp, which was biopsied and destroyed with forceps. This was approximately 2 mm in size. The inflammation did ensue at the cecum as well. Biopsies were also taken of the cecum. The endoscope was then slowly withdrawn with taking a second look and suctioning of residual air with no additional findings. The patient tolerated the procedure well. We will have him continue with medical management. 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 He also needs to stop drinking alcoholic beverages. We are unsure of the etiology of the colitis, but this was identified several weeks ago and he still has signs of colitis, which may indicate some level of undiagnosed inflammatory bowel disease and we will proceed with a trial of 5-aminosalicylic acid 800 mg t.i.d. for six weeks. We will also eventually refer him to gastroenterology. Job ID: [id number] DocumentID: [id number] Dictated Date: 02/09/2022 14:24:44 Benzol Still Operator Date: 02/10/2022 00:13:26 Dictated By: SHASTA ZUNIGA MD
== END 2022-02-09 15:15 | disposition home or self-care (01) ==
LOC: ENDO 11:24
PROVIDERS: ATTEND Surgery
DX: D12.3 Benign neoplasm of transverse colon (principal); K21.00 Gastro-esophageal reflux disease with esophagitis, without bleeding; K63.89 Other specified diseases of intestine; K92.0 Hematemesis; K44.9 Diaphragmatic hernia without obstruction or gangrene; I85.00 Esophageal varices without bleeding; K64.1 Second degree hemorrhoids; K64.4 Residual hemorrhoidal skin tags; K62.89 Other specified diseases of anus and rectum
CPT/HCPCS: 36415; 80048; 85025; 88305; 93005

== ENCOUNTER 2022-05-27 04:59 | Emergency (ER) | payer SELFPAY ==
[~2022-05-27 04:59] MED LIST changes: +LEVO750T PO; -LEVO750T39 PO; +MESA400C3 PO
[2022-05-27] MEDS ORDERED: TETANUS,DIPTH,PERTUSS P/F (BOOSTRIX) 0.5 ML VIAL IM ONE (05:30)
[2022-05-27] MEDS ORDERED: LIDOCAINE UROJET 2% GEL 10 ML PKG TOP ONE (05:30)
[2022-05-27] MEDS ORDERED: LACTATED RINGERS 1,000 ML IV ONE (05:30)
[2022-05-27 05:51] LABS: BASOPHILS % (AUTO) 1 % (0-10); MEAN CORPUSCULAR VOLUME 110 fL (80-99)
[2022-05-27 05:53] LABS: BASOPHILS # (AUTO) 0.1 10^3/uL (0.0-0.1); EOSINOPHILS # (AUTO) 0.3 10^3/uL (0.0-0.3); EOSINOPHILS % (AUTO) 2 % (0-10); HEMATOCRIT 21 % (40-54); HEMOGLOBIN 7.1 g/dL (13.3-17.7); LYMPHOCYTES # (AUTO) 1.7 10^3/uL (1.0-4.0); LYMPHOCYTES % (AUTO) 12 % (12-44); MEAN CORPUSCULAR HEMOGLOBIN 38 pg (25-34); MEAN CORPUSCULAR HGB CONC 34 g/dL (32-36); MEAN PLATELET VOLUME 10.5 fL (9.0-12.2); MONOCYTES # (AUTO) 0.8 10^3/uL (0.0-1.0); MONOCYTES % (AUTO) 6 % (0-12); NEUTROPHILS # (AUTO) 11.6 10^3/uL (1.8-7.8); NEUTROPHILS % (AUTO) 78 % (42-75); PLATELET COUNT 104 10^3/uL (130-400); WHITE BLOOD COUNT 14.8 10^3/uL (4.3-11.0)
[2022-05-27 05:59] LABS: ACETAMINOPHEN 10 UG/ML (10-30); ALANINE AMINOTRANSFERASE 44 U/L (0-55); ALBUMIN 2.6 GM/DL (3.2-4.5); ALKALINE PHOSPHATASE 147 U/L (40-136); AMMONIA 56 UMOL/L (11-32); AMYLASE 146 U/L (25-125); BUN/CREATININE RATIO 19; CALCIUM 7.7 MG/DL (8.5-10.1); CHLORIDE 98 MMOL/L (98-107); GFR ESTIMATED 90; GLUCOSE 93 MG/DL (70-105); LIPASE 314 U/L (8-78); MAGNESIUM 1.8 MG/DL (1.6-2.4); SODIUM 133 MMOL/L (135-145); TOTAL PROTEIN 7.6 GM/DL (6.4-8.2)
--- NOTE | 2022-05-27 06:13 | ED Fall/Injury ---
General Chief Complaint: Trauma-Non Activation Stated Complaint: FALL Source: patient (LIMITED HISTORIAN AND SLOW MENTATION) (HAI FOX DO) History of Present Illness Date Seen by Provider: May 27, 2022 Time Seen by Provider: 05:00 Initial Comments PT ARRIVES VIA EMS FROM HOME PT CALLED EMS, LIVES ALONE. PT REPORTS THAT HE "FELL OR SOMETHING" 1 WEEK AGO TODAY. HE DID NOT SEEK CARE AT ANY TIME FOR THAT INCIDENT HE HAS FALLEN TWICE TONIGHT, AND WAS NOT ABLE TO GET UP FOR A FEW HOURS. HE WAS EVENTUALLY ABLE TO CALL EMS TO BRING HIM HERE. PT IS AN ALCOHOLIC WITH CIRRHOSIS. HIS LAST DRINK WAS 2 DAYS AGO. EMS REPORT SOME TREMORS, BUT NO WITNESSED SEIZURE ACTIVITY BY EMS. NO TREMORS ARE NOTED ON ARRIVAL TO ER. STATES HE "HURTS ALL OVER" , HAS MULTIPLE AREAS OF PAIN, INCLUDING: -FACE -HEAD -NECK -LEFT SHOULDER -LEFT LEG--STATES IT HAS BEEN SWOLLEN FOR THE LAST WEEK. -BACK -ABDOMEN DOES HAVE CHRONIC BACK AND NECK PAIN PCP: DR. HAYS SURGEON: DR. ZUNIGA--HAS SEEN HIM FOR GALLBLADDER DISEASE. (HAI FOX DO) Allergies and Home Medications Allergies Coded Allergies: meperidine HCl (Verified Allergy, Mild, 10/23/11) morphine (Verified Allergy, Mild, 10/23/11) tramadol (Verified Allergy, Mild, 10/23/11) Patient Home Medication List Home Medication List Reviewed: Yes (ANITHA TONY DO) Acetaminophen (Tylenol Extra Strength) 500 Mg Tablet, 1,000 MG PO Q8H PRN for PAIN-MILD (1-4), (Reported) Entered as Reported by: MAIN NARAYANAN on 01/26/22 1453 Levothyroxine Sodium (Levothyroxine Sodium) 125 Mcg Tablet, 125 MCG PO DAILY, (Reported) Entered as Reported by: MAIN NARAYANAN on 01/26/22 1453 Lisinopril/Hydrochlorothiazide (Lisinopril-Hctz 20-12.5 mg Tab) 20 Mg-12.5 Mg Tablet, 1 EA PO DAILY, (Reported) Entered as Reported by: MAIN NARAYANAN on 01/26/22 1453 Lorazepam (Ativan) 1 Mg Tablet, 1 MG PO QID Prescribed by: SHASTA ZUNIGA on 01/27/22 1634 Mesalamine (Mesalamine Dr) 400 Mg Cap.drtab., 800 MG PO TID Prescribed by: VINCE LINK on 02/09/22 1442 Pantoprazole Sodium (Protonix) 40 Mg Tablet.dr, 40 MG PO DAILY Prescribed by: SHASTA UZNIGA on 01/27/22 1634 Potassium Citrate (Potassium) 99 Mg Capsule, 99 MG PO DAILY, (Reported) Entered as Reported by: VINCE LINK on 02/08/22 0812 Spironolactone (Spironolactone) 25 Mg Tablet, 25 MG PO DAILY Prescribed by: MARY CANDELARIA on 01/28/22 1238 Review of Systems Review of Systems Constitutional: malaise, weakness Eyes: See HPI, Other (LEFT PERIORBITAL BRUISING/SWELLING. NO VISION CHANGES. NO HEARING CHANGES) Ears, Nose, Mouth, Throat: see HPI Respiratory: no symptoms reported; No short of breath Cardiovascular: no symptoms reported; No chest pain Gastrointestinal: see HPI, abdominal pain; No diarrhea, No nausea, No vomiting Genitourinary: no symptoms reported Musculoskeletal: see HPI Skin: see HPI Psychiatric/Neurological: See HPI, Headache; Denies Numbness, Denies Paresthesia, Denies Tingling, Denies Weakness (HAI FOX DO) Past Ehcyooh-Ylemxs-Uyjgjv Hx Patient Social History Tobacco Use?: Yes Tobacco type used: Cigarettes Smoking Status: Current Everyday Smoker Substance use?: No (DENIES) Alcohol Use?: Yes Alcohol type: Beer, Hard Liquor Alcohol Frequency: Daily (HAI FOX DO) Immunizations Up To Date Tetanus Booster (TDap): Unknown First/Initial COVID19 Vaccinat: 2020 Second COVID19 Vaccination Carl: 2020 Third COVID19 Vaccination Date: 2020 (HAI FOX DO) Seasonal Allergies Seasonal Allergies: Yes (HAI FOX DO) Past Medical History Surgery/Hospitalization HX: APPY, HAND, T/A HTN, HYPOTHRYOIDISM Surgeries: Yes (Left hand finger amputation) Adenoidectomy, Appendectomy, Orthopedic, Tonsillectomy Respiratory: No Cardiac: Yes High Cholesterol, Hypertension Neurological: No Genitourinary: Yes Prostate Problems, Kidney Stones Gastrointestinal: Yes (UMBILICAL HERNIA, COLITIS; ALCOHOLIC CIRRHOSIS; GALLSTONES; GASTRITIS. ) Abdominal Hernia, Colitis, Liver Disease/Jaundice, Gastrointestinal Bleed, Esophageal Varices, Esophagitis, Hiatal Hernia, Cirrhosis, Gall Bladder Disease Musculoskeletal: Yes Chronic Back Pain Endocrine: Yes Hypothyroidsim HEENT: Yes (READERS) Cancer: No Psychosocial: Yes (ALCOHOLISM) Anxiety, PTSD, Depression Integumentary: No Blood Disorders: Yes (ANEMIA) (HAI FOX DO) Family Medical History No Pertinent Family Hx 02/09/22 EGD/COLONOSCOPY BY DR. ZUNIGA: FINDINGS: Reflux esophagitis, Beauregard grade C; esophageal varices, grade II; small hiatal hernia 2 cm in size, severe gastritis, no active bleeding. Chronic stage II external and internal hemorrhoids, proctitis and colitis of the sigmoid, descending colon, as well as the cecum. No active bleeding. Small polyp of the transverse colon. (HAI FOX DO) Physical Exam Vital Signs Vital Signs - First Documented 05/27/22 05/27/22 05:58 08:55 Pulse 95 Resp 16 B/P (MAP) 137/78 Pulse Ox 90 O2 Delivery Nasal Cannula O2 Flow Rate 2.00 (ANITHA TONY DO) Vital Signs Capillary Refill : (HAI FOX DO) Height, Weight, BMI Height: 6'1" Weight: 195lbs. oz. 88.127687ts; 31.32 BMI Method:Stated General Appearance: WD/WN, no apparent distress, other (SLOW MENTATION) HEENT: PERRL/EOMI, scleral icterus (R), scleral icterus (L), other (NO HYPHEMA. EXTENSIVE BRUSING TO FACE, ESPECIALLY TO LEFT PERIORBITAL AREA. TENDERNESS TO MOST OF FACE. HE HAS FRESH/DRIED BLOOD FROM BOTH NARES AND DRIED ON LIPS. MUL TIPLE UPPER FRONT TEETH ARE MISSING--PT STATES THAT IS OLD. DENIES ANY NEW INTRAORAL OR DENTAL INJURY. BRUISES TO FACE APPEAR TO BE DIFFERENT AGES. NO HEMOTYMPANUM. NO MCCARTHY SIGN. ) Neck: full range of motion, tender lateral; No tender midline Cardiovascular: regular rate, rhythm, no murmur Respiratory: chest non-tender, normal breath sounds, no respiratory distress, no accessory muscle use Gastrointestinal: hernia (SOFT, REDUCIBLE UMBILICAL HERNIA. NON-TENDER. ), other (ABDOMEN IS LARGE, WITH ASCITES. UNABLE TO PALPATE LIVER OR SPLEEN DUE TO THIS. HAS LARGE BRUISE TO LEFT MID/LOWER ABDOMEN AND LARGE BRUISE TO LEFT FLANK AREA. ) Back: other (LARGE LEFT FLANK BRUISE WITH TENDERNESS, AND MILD AREA OF SLIGHT BRUISE/ERYTHEMA AND SMALL SUPERFICIAL ABRASION TO LEFT SCAPULA. STATES HIS ENTIRE BACK HURTS AND IS SORE TO TOUCH. ) Extremities: normal capillary refill, other (BOTH KNEES WITH LARGE SCABBED WOUNDS. RIGHT LEG HAS 1+ EDEMA. LEFT LEG HAS 3+ EDEMA. LEFT LEG HAS EXTENSIVE BRUISING FROM LATERAL THIGH DOWN TO ANKLE AREA. BRUISES APPEAR TO BE DIFFERENT AGES. DISTAL MOTOR/SENSORY/VASCULAR INTACT. THERE IS SOME TENDERNESS TO LEFT SHOULDER, NO OBVIOUS DEFORMITY. HAS SOME LIMITED ROM DUE TO PAIN. DISTAL MOTOR/SENSORY/ VASCULAR INTACT. ) Neurologic/Psychiatric: tip stretcher II-XII nml as tested, no motor/sensory deficits, alert, other (SLOW MENTATION. ORIENTED TO SELF, PLACE. GROSSLY OREINTED TO SITUATION, BUT VERY POOR MEMORY, AND SOMEWHAT CONFUSED TO TIME. KNOWS MOTHER. ) Skin: ecchymosis, jaundice (HAI FOX DO) Progress/Results/Core Measures Results/Orders Lab Results Laboratory Tests Test 05/27/22 05:15 05/27/22 08:54 Range/Units White Blood Count 14.8 H 4.3-11.0 10^3/uL Red Blood Count 1.88 L 4.30-5.52 10^6/uL Hemoglobin 7.1 L 13.3-17.7 g/dL Hematocrit 21 L 40-54 % Mean Corpuscular Volume 110 H 80-99 fL Mean Corpuscular Hemoglobin 38 H 25-34 pg Mean Corpuscular Hemoglobin Concent 34 32-36 g/dL Red Cell Distribution Width 18.4 H 10.0-14.5 % Platelet Count 104 L 130-400 10^3/uL Mean Platelet Volume 10.5 9.0-12.2 fL Immature Granulocyte % (Auto) 2 % Neutrophils (%) (Auto) 78 H 42-75 % Lymphocytes (%) (Auto) 12 12-44 % Monocytes (%) (Auto) 6 0-12 % Eosinophils (%) (Auto) 2 0-10 % Basophils (%) (Auto) 1 0-10 % Neutrophils # (Auto) 11.6 H 1.8-7.8 10^3/uL Lymphocytes # (Auto) 1.7 1.0-4.0 10^3/uL Monocytes # (Auto) 0.8 0.0-1.0 10^3/uL Eosinophils # (Auto) 0.3 0.0-0.3 10^3/uL Basophils # (Auto) 0.1 0.0-0.1 10^3/uL Immature Granulocyte # (Auto) 0.3 H 0.0-0.1 10^3/uL Neutrophils % (Manual) 78 % Lymphocytes % (Manual) 5 % Monocytes % (Manual) 7 % Eosinophils % (Manual) 3 % Band Neutrophils 7 % Percent Immature Platelet Fraction 3.7 0.0-7.6 % Hypochromasia SLIGHT Macrocytosis SLIGHT Erythrocyte Sedimentation Rate > 140 H 0-30 MM/HR Prothrombin Time 22.3 H 12.2-14.7 SEC INR Comment 1.9 H 0.8-1.4 Activated Partial Thromboplast Time 61 H 24-35 SEC D-Dimer > 120.00 H 0.00-0.49 UG/ML Sodium Level 133 L 135-145 MMOL/L Potassium Level 4.0 3.6-5.0 MMOL/L Chloride Level 98 98-107 MMOL/L Carbon Dioxide Level 9 *L 21-32 MMOL/L Anion Gap 26 H 5-14 MMOL/L Blood Urea Nitrogen 19 H 7-18 MG/DL Creatinine 1.00 0.60-1.30 MG/DL Estimat Glomerular Filtration Rate 90 BUN/Creatinine Ratio 19 Glucose Level 93 70-105 MG/DL Calcium Level 7.7 L 8.5-10.1 MG/DL Corrected Calcium 8.8 8.5-10.1 MG/DL Magnesium Level 1.8 1.6-2.4 MG/DL Total Bilirubin 11.6 *H 0.1-1.0 MG/DL Aspartate Amino Transf (AST/SGOT) 236 H 5-34 U/L Alanine Aminotransferase (ALT/SGPT) 44 0-55 U/L Alkaline Phosphatase 147 H 40-136 U/L Ammonia 56 H 11-32 UMOL/L Total Creatine Kinase 2139 H 30-200 U/L Creatine Kinase MB 4.9 <6.6 NG/ML Myoglobin 1839.3 H 10.0-92.0 NG/ML Troponin I 0.188 H <0.028 NG/ML C-Reactive Protein High Sensitivity 3.81 H 0.00-0.50 MG/DL B-Type Natriuretic Peptide 61.8 <100.0 PG/ML Total Protein 7.6 6.4-8.2 GM/DL Albumin 2.6 L 3.2-4.5 GM/DL Amylase Level 146 H 25-125 U/L Lipase 314 H 8-78 U/L Free Thyroxine < 0.40 L 0.70-1.48 NG/DL TSH Cylinder Testing 65.03 H 0.35-4.94 UIU/ML Acetaminophen Level 10 10-30 UG/ML Serum Alcohol 79 H <10 MG/DL Hepatitis A IgM Antibody Non-Reactive Non-Reactive Hepatitis B Surface Antigen Non-Reactive Non-Reactive Hepatitis B Core IgM Antibody Non-Reactive Non-Reactive Hepatitis C Antibody Non-Reactive Non-Reactive HIV (1&2) Ag and Ab Screen Referral Non-Reactive Non-Reactive Urine Color HARESH H Urine Clarity SL CLOUDY Urine pH 5.0 5-9 Urine Specific [place] >=1.030 1.016-1.022 Urine Protein NEGATIVE NEGATIVE Urine Glucose (UA) NEGATIVE NEGATIVE Urine Ketones NEGATIVE NEGATIVE Urine Nitrite NEGATIVE NEGATIVE Urine Bilirubin 2+ H NEGATIVE Urine Urobilinogen 4.0 < = 1.0 MG/DL Urine Leukocyte Esterase NEGATIVE NEGATIVE Urine RBC (Auto) NEGATIVE NEGATIVE Urine RBC RARE /HPF Urine WBC RARE /HPF Urine Squamous Epithelial Cells RARE /HPF Urine Crystals NONE /LPF Urine Bacteria FEW H /HPF Urine Casts PRESENT /LPF Urine Hyaline Casts 5-10 H /LPF Urine Mucus NEGATIVE /LPF Urine Culture Indicated NO Urine Opiates Screen NEGATIVE NEGATIVE Urine Oxycodone Screen NEGATIVE NEGATIVE Urine Methadone Screen NEGATIVE NEGATIVE Urine Propoxyphene Screen NEGATIVE NEGATIVE Urine Barbiturates Screen NEGATIVE NEGATIVE Ur Tricyclic Antidepressants Screen NEGATIVE NEGATIVE Urine Phencyclidine Screen NEGATIVE NEGATIVE Urine Amphetamines Screen NEGATIVE NEGATIVE Urine Methamphetamines Screen NEGATIVE NEGATIVE Urine Benzodiazepines Screen POSITIVE H NEGATIVE Urine Cocaine Screen NEGATIVE NEGATIVE Urine Cannabinoids Screen NEGATIVE NEGATIVE (ANITHA TONY DO) My Orders Orders - ANITHA TONY DO Ct Chest/Abdomen/Pelvis Wo (05/27/22 ) Lorazepam Injection (Ativan Injection) (05/27/22 07:15) (ANITHA TONY DO) Medications Given in ED (ANITHA TONY DO) Vital Signs/I&O 05/27/22 05/27/22 05:58 08:55 Pulse 95 Resp 16 B/P (MAP) 137/78 Pulse Ox 90 94 O2 Delivery Nasal Cannula Nasal Cannula O2 Flow Rate 2.00 2.00 (ANITHA TONY DO) Progress Progress Note : Progress Note GIVEN: -IV FLUIDS -DTP VACCINE MOM ARRIVES SHORTLY AFTER HIS ARRIVAL HERE. 0600--CARE TURNED OVER TO DR. TONY, ALL STUDIES PENDING. (HAI FOX DO) Critical Care Note Critical Care Start Time: 05:05 Stop Time: 08:15 Total Time (minutes) 190 (ANITHA TONY DO) Departure Communication (Admissions) Patient remained hemodynamically stable. CT scan shows parafalcine subdural hematoma with no shift. Also has a large retroperitoneal hematoma. He is hemodynamically stable at this time with only mild belly pain. He does have diffuse ecchymosis throughout his body. Unfortunately his INR is 1.9 secondary to liver disease. I do not think any FFP, vitamin K or other therapies would likely help at this time. He is not on any blood thinning medicines and this is only secondary to his cirrhosis. He does have diffuse jaundice and elevated bilirubin. At present he is alert, oriented. I spoke with him and his mother about transfer. He initially contacted [facility] who called back and declined secondary to being at capacity. I called back to inquire about declination of a trauma transfer and they stated since it did not meet criteria for their ICU that they would go ahead and decline secondary to being at capacity. I spoke with Dr. Andrea Mancuso who accepts the patient in transfer 0815: helicopter should be here in around 15-18 minutes (ANITHA TONY DO) Impression Primary Impression: Subdural hematoma Additional Impressions: Retroperitoneal hematoma Pleural effusion, left Alcoholic cirrhosis of liver Qualified Codes: K70.31 - Alcoholic cirrhosis of liver with ascites Disposition: XF SHT-TRM HOSP Condition: Stable Transfer Transfer Reason: Exceeds level of care Time Spoke to Accepting Phy: 07:50 Transfer Progress Notes [facility]: Initially spoke to transfer iron operator at around 0730 who was checking with transfer provider. They called back aroun 745 to say they were declining thomas sfer due to capacity. I inquired about this being a trauma transfer and they again stated they declined due to capacity. 0750: Spoke to Dr Mendez at [facility] in [place]. Accepts patient for transfer to their ER. (ANITHA TONY DO) Departure-Patient Inst. Referrals: NO,LOCAL PHYSICIAN (PCP/Family) Primary Care Physician HAI FOX DO May 27, 2022 06:13 ANITHA TONY DO May 27, 2022 07:56
[2022-05-27 06:30] LABS: CREATINE KINASE 2139 U/L (30-200)
[2022-05-27 06:32] LABS: INR 1.9 (0.8-1.4); PARTIAL THROMBOPLASTIN TIME 61 SEC (24-35); PROTHROMBIN TIME PATIENT 22.3 SEC (12.2-14.7)
[2022-05-27 06:33] LABS: FIBRIN DEGRADATION PRODUCTS > 120.00 UG/ML (0.00-0.49)
[2022-05-27 06:38] LABS: CREATINE KINASE MB 4.9 NG/ML (<6.6)
[2022-05-27 06:50] LABS: TSH (THYROID ANALYZER) 65.03 UIU/ML (0.35-4.94)
[2022-05-27 06:58] LABS: BAND NEUTROPHILS 7 %; EOSINOPHILS % (MANUAL) 3 %; HYPOCHROMASIA SLIGHT; LYMPHOCYTES % (MANUAL) 5 %; MONOCYTES % (MANUAL) 7 %; NEUTROPHILS % (MANUAL) 78 %
[2022-05-27 06:59] LABS: ERYTHROCYTE SEDIMENTATION RATE > 140 MM/HR (0-30)
--- NOTE | 2022-05-27 07:13 | Diagnostic Imaging Report ---
PROCEDURE: CT thoracic and lumbar spine without contrast. TECHNIQUE: Multiple contiguous axial images were obtained through the thoracic and lumbar spine without the use of intravenous contrast. Sagittal and coronal reformations were then performed. All CT scans use one or more of the following dose optimizing techniques: automated exposure control, MA and/or KvP adjustment based on a patient size and exam type, or iterative reconstruction. INDICATION: 51-year-old male injured in fall, left-sided bruising and swelling of the shoulder, back pain, neck pain, abdominal pain and left facial bruising as well as epistaxis. Comparisons: None. FINDINGS: Axial images in sagittal and coronal reconstructions of the thoracic spine demonstrate compression fractures at multiple levels age indeterminate. Patient motion does limit assessment. Compression fractures involve L1, T12, T11, T8, and T4. Again given the patient motion these fractures are age indeterminate. The vertebrae otherwise appear reasonably well aligned. There is a small to moderate left effusion with a left lower lobe consolidation. Few right posterior basilar infiltrates are present. There is normal caliber of the thoracic aorta IMPRESSION: 1. CT of the thoracic spine and limit assessment of the lumbar spine show multilevel compression fractures as described above age-indeterminate. Patient motion does severely limit assessment. If symptoms warrant or persist an MRI may be of further value to assess the chronicity of these lesions. 2. Moderate size left effusion with the left lower lobe consolidations. There is sine right posterior basilar infiltrates. Dictated by: Dictated on workstation # [id number]
--- NOTE | 2022-05-27 07:14 | Diagnostic Imaging Report ---
PROCEDURE: CT head, face, and cervical spine without contrast. TECHNIQUE: Multiple contiguous axial images were obtained through the head, neck, and facial bones without the use of intravenous contrast. Sagittal and coronal reformations through the cervical spine and facial bones were also performed. Auto Exposure Controls were utilized during the CT exam to meet ALARA standards for radiation dose reduction. INDICATION: 51-year-old trauma patient presents with headache and neck pain Comparisons: None CT head without contrast: FINDINGS: Midline structures are not displaced. Lateral, 3rd and 4th ventricles are normal in size, shape and anatomic position. There is a right parafalcine subdural hematoma with a maximum thickness of approximately 8 mm. There is also subdural blood layering along the tentorium. There is no midline shift, mass effect or hydrocephalus. Basilar cisterns appear normal. Sinuses, orbits and mastoid cells are unremarkable. Bone windows show no calvarial changes. IMPRESSION: Right parafalcine subdural hematoma with maximum thickness of 8 mm. There is also subdural blood layering along the tentorium. Short-term follow-up is recommended. CT facial bones with reconstructions: FINDINGS: Axial images in sagittal and coronal reconstructions of the facial bones demonstrate excessive patient motion which does limit assessment. The mandible appears to be intact. TMJs are also intact. The maxilla appears normal. There is slight nasoseptal deviation to the left. Nasal bones are symmetric. There is some mild chronic maxillary sinus disease as well as some mild ethmoid sinus disease. Orbits and mastoid air cells are unremarkable. Orbits including both globes, retro-orbital extraconal, coronal and intraconal spaces are grossly normal. Zygomatic arch and pterygoid plates are symmetric. Mastoid air cells appear well pneumatized. IMPRESSION: 1. Excessive patient motion limits assessment. 2. Mild chronic sinus disease. 3. No definite fracture or subluxation seen by nonenhanced CT criteria. However interpretability is limited due to patient motion. Dictated by: Dictated on workstation # [id number]
[2022-05-27] MEDS ORDERED: LORazepam INJ 2 MG/ML (ATIVAN) VIAL IVP PRN (07:15)
[2022-05-27 07:25] LABS: BILIRUBIN,TOTAL 11.6 MG/DL (0.1-1.0); CARBON DIOXIDE 9 MMOL/L (21-32)
--- NOTE | 2022-05-27 07:39 | Diagnostic Imaging Report ---
PROCEDURE: CT chest, abdomen, and pelvis without contrast. TECHNIQUE: Multiple contiguous axial images were obtained through the chest, abdomen, and pelvis without the use of intravenous contrast. Auto Exposure Controls were utilized during the CT exam to meet ALARA standards for radiation dose reduction. INDICATION: 51-year-old male with alcohol intoxication, multiple falls with chest pain, abdominal pain and back pain, pelvic pain COMPARISONS: 12/12/2021 CT abdomen pelvis, CT chest 04/23/2021 FINDINGS: There is no axillary adenopathy. There is no mediastinal or hilar adenopathy. Cardiac contour is normal. Thoracic aortic contour is also normal. There is a left lower lobe consolidation with a small to moderate left effusion. Some minimal right basilar infiltrates are also seen. Some hazy atelectasis seen in both upper lobes. Liver shows slight nodularity with borderline hepatomegaly. There is a trace amount of fluid surrounding the right lobe the liver which may be ascites. A small subcapsular hematoma cannot be entirely excluded. Interpretability is limited due to the extensive beam hardening artifact from the patient's body habitus and streak artifact from the arms. Gallbladder is moderately distended. Layered stones are seen. Spleen and GE junction are normal. Stomach and duodenal sweep are unremarkable. There is some stranding posterior to the pancreas but the pancreatic margins are sharp. Adrenals are normal. Kidneys appear normal in size, position and contour. There is a 5 mm nonobstructing stone in the inferior pole calyx of the right kidney. There is no hydronephrosis or hydroureter. Both ureters are seen intermittently through their coarse and appear unremarkable. Partially filled bladder is also normal. Nonopacified loops small bowel are normal. Large bowel is mostly decompressed. There is a large right retroperitoneal hematoma. There is also some edema extending along the right psoas muscle to the right iliacus muscle. There is also a trace amount of fluid along the central retroperitoneum. There is normal caliber of aorta, iliac and femoral arteries. Bone windows show no definite fracture or subluxation seen. There is a degenerative changes in the axial skeleton IMPRESSION: 1. Large right retroperitoneal hematoma. A postcontrast CT abdomen pelvis with delayed imaging would be of further value to assess for active extravasation. 2. Left lower lobe consolidation with a moderate left effusion. There is also some right basilar infiltrates. 3. Trace right perihepatic fluid collection. This may be ascites however a subcapsular hematoma is not excluded. Overall beam hardening artifact does limit assessment of the abdomen and pelvis. 4. There is hepatomegaly. 5. Nonobstructing inferior pole calyx stone of the right kidney. 6. Cholelithiasis. No definite evidence of acute cholecystitis seen however the gallbladder wall is mildly prominent. Perhaps correlation with ultrasound would be of further value to assess this finding. Additional nonemergent findings as described above. Dictated by: Dictated on workstation # [id number]
[2022-05-27 08:02] LABS: FREE T4 (FREE THYROXINE) < 0.40 NG/DL (0.70-1.48)
--- NOTE | 2022-05-27 08:30 | Diagnostic Imaging Report ---
FEMUR, LEFT, 2 VIEWS INDICATION: Left thigh pain COMPARISON: None available. TECHNIQUE: 2 views left femur FINDINGS: No fracture or periosteal reaction. No endosteal scalloping or other concerning focal osseous lesion in the femur. Mild degenerative arthritis of left hip. Vascular calcifications are noted. No radiopaque foreign body or soft tissue gas. IMPRESSION: No fracture within the left femur. Dictated by: Dictated on workstation # [id number]
--- NOTE | 2022-05-27 08:32 | Diagnostic Imaging Report ---
TIBIA/FIBULA, LEFT, 2 VIEWS INDICATION: Left lower leg pain COMPARISON: None available. TECHNIQUE: 2 views of left tibia and fibula FINDINGS: No fracture in the tibia or fibula. Subcutaneous reticulations are present throughout the leg and likely due to edema. No radiopaque foreign body or soft tissue gas. IMPRESSION: No fracture within the tibia or fibula. Dictated by: Dictated on workstation # [id number]
[2022-05-27 08:55] VITALS: BP 137/78
[2022-05-27 09:02] LABS: CLARITY,URINE SL CLOUDY; COLOR,URINE AMBER; GLUCOSE, URINE (UA) NEGATIVE (NEGATIVE); KETONES,URINE NEGATIVE (NEGATIVE); LEUKOCYTE ESTERASE ,URINE NEGATIVE (NEGATIVE); NITRITE,URINE NEGATIVE (NEGATIVE); PROTEIN,URINE NEGATIVE (NEGATIVE)
[2022-05-27 09:18] LABS: AMPHETAMINE SCREEN, URINE NEGATIVE (NEGATIVE); BARBITURATE SCREEN URINE NEGATIVE (NEGATIVE); BENZODIAZEPINES SCREEN URINE POSITIVE (NEGATIVE); CANNABINOID SCREEN, URINE NEGATIVE (NEGATIVE); COCAINE SCREEN URINE NEGATIVE (NEGATIVE); METHADONE STAT NEGATIVE (NEGATIVE); OPIATE SCREEN URINE NEGATIVE (NEGATIVE); OXYCODONE STAT NEGATIVE (NEGATIVE); PROPOXYPHENE STAT NEGATIVE (NEGATIVE); TRICYCLIC ANTIDEPRESSANTS SCRE NEGATIVE (NEGATIVE)
[2022-05-27 09:19] LABS: BACTERIA,URINE FEW /HPF; BILIRUBIN,URINE 2+ (NEGATIVE); RBC,URINE RARE /HPF; SQUAMOUS EPITHELIAL CELL,UR RARE /HPF; WBC,URINE RARE /HPF
[2022-05-27 20:47] LABS: HEPATITIS C ANTIBODY C Non-Reactive (Non-Reactive)
== END 2022-05-27 08:55 | disposition short-term general hospital (02) ==
LOC: EDUNIT# 04:59 → ER 05:00
DX: S06.5XAA Traumatic subdural hemorrhage with loss of consciousness status unknown, initial encounter (principal); S36.892A Contusion of other intra-abdominal organs, initial encounter; S30.1XXA Contusion of abdominal wall, initial encounter; S80.12XA Contusion of left lower leg, initial encounter; S00.01XA Abrasion of scalp, initial encounter; K70.31 Alcoholic cirrhosis of liver with ascites; K42.9 Umbilical hernia without obstruction or gangrene; J90 Pleural effusion, not elsewhere classified; F17.210 Nicotine dependence, cigarettes, uncomplicated; Z23 Encounter for immunization; W19.XXXA Unspecified fall, initial encounter
CPT/HCPCS: 70450; 70486; 71250; 72125; 72128; 72131; 73552; 73590; 74176; 80053; 80074; 80306; 81000; 82140; 82150; 82550; 82553; 83690; 83735; 83874; 83880; 84439; 84443; 84484; 85007; 85027; 85379; 85610; 85652; 85730; 86141; 87389; 93005; 93041; 99285; G0480 ×2; 36415; 80320; 80329; 90715